=== PATIENT | male | born 1960 | race Hispanic/Latino ===

== ENCOUNTER 2017-08-22 11:54 | Outpatient (CLI) | payer BC ==
--- NOTE | 2017-08-22 15:25 | NM ---
HEPATOBILIARY SCAN: Date: 08/22/17 COMPARISON: None. HISTORY: Right upper quadrant abdominal pain. TECHNIQUE: A hepatobiliary scan was performed after administration of 4.7 mCi of technetium-99m mebrofenin. FINDINGS: Prompt uptake of the radiopharmaceutical is seen by the liver. No photopenic liver lesions are seen. Biliary activity is seen within 10 minutes. Gallbladder activity is seen within 10 minutes. Bowel a ctivity is seen within 15 minutes. The gallbladder emptied spontaneously during the examination. The gallbladder ejection fraction was estimated at 82%. IMPRESSION: Normal hepatobiliary scan. POS: [facility]
== END 2017-08-22 11:55 | disposition home or self-care (01) ==
LOC: NM 11:54
PROVIDERS: ATTEND Surgery
DX: R10.9 Unspecified abdominal pain (principal)
CPT/HCPCS: 78227; A9537

== ENCOUNTER 2018-01-01 20:30 | Outpatient (CLI) | payer OTHER, MEDICARE | END 2018-01-01 20:31 | disposition home or self-care (01) | LOC: SLEEPLAB 20:30 | PROVIDERS: ATTEND Internal Medicine Pulmonary Disease | DX: G47.33 Obstructive sleep apnea (adult) (pediatric) (principal); E66.9 Obesity, unspecified | CPT/HCPCS: 95811 ==

== ENCOUNTER 2018-03-16 08:04 | Emergency (ER) | payer OTHER, MEDICARE ==
[2018-03-16 09:10] LABS: Bilirubin Negative (Negative); Blood, Urine Negative (Negative); Clarity CLEAR (Clear); Glucose, Urine (Dipstick) Negative (Negative); Leukocyte Trace (Negative); Nitrite Negative (Negative); Protein, Urine (Dipstick) Negative (Neg-Trace); Specific Gravity, Urine 1.006 (1.002-1.036); Urobilinogen 0.2 mg/dL (0.2-1.0); pH, Urine 6.5 (5.0-9.0)
[2018-03-16 09:13] LABS: Bacteria/HPF None Seen HPF (None Seen); Hyaline Casts/LPF 0-3 HYALINE CAST LPF (0-3 Hyaline); RBC/HPF 0-3 HPF (0-3); Squamous Epithelial None Seen HPF (0-3); WBC/HPF None Seen HPF (0-3)
[2018-03-16 09:21] LABS: #Eosinphils 0.2 thou/uL (0.0-0.7); #Lymphocytes 2.4 thou/uL (1.20-3.40); #Monocytes 0.8 thou/uL (0.11-0.59); #Neutrophils 4.1 thou/uL (1.40-6.50); %Basophils 0.4 % (0.0-1.0); %Eosinophils 2.9 % (0.0-10.0); %Lymphocytes 31.7 % (21.0-51.0); %Monocytes 10.7 % (0.0-10.0); %Neutrophils 54.4 % (42.0-75.0); Hemoglobin 15.3 g/dL (14.0-18.0); Mean Corpuscular HGB CONC 35.1 g/dL (32.0-36.0); Mean Corpuscular Volume 88.4 fl (80.0-94.0); Mean Platelet Volume 6.6 fL (7.4-10.4); Platelet Count 275 thou/uL (130-400); RBC Distribution Width 11.8 % (11.5-14.5); Red Blood Cell (RBC) Count 4.92 mill/uL (4.70-6.10); White Blood Cell (WBC) Count 7.6 thou/uL (4.8-10.8)
[2018-03-16 09:31] LABS: Base Excess-Venous 1.1 mmol/L (0 (+/- 2.5)); Bicarbonate (HCO3v) 25.1 mmol/L (1.0-85.0); CO2 Tension (PvCO2) 37.3 mmHg (41.0-51.0); Calcium, Ionized 1.13 mmol/L (1.12-1.32); Hemoglobin - Calc 15.9 g/dL (12.0-18.0); O2 Tension (PvO2) 74.3 mmHg (35.0-45.0); Potassium 3.8 mmol/L (3.4-4.7); T. Carbon Dioxide 26.3 mmol/L (1.0-85.0); pH (Venous) 7.437 (7.35-7.45); vO2 Saturation-calc 95.3 % (94-98)
[2018-03-16 09:37] LABS: ALT (SGPT) 68 U/L (8-55); AST (SGOT) 34 U/L (5-34); Albumin 4.5 g/dL (3.5-5.0); Alkaline Phosphatase 65 U/L (40-150); Anion Gap 12 mmol/L (10-20); BUN (Urea Nitrogen) 9 mg/dL (8.4-25.7); Bilirubin, Total 0.5 mg/dL (0.2-1.2); CK (CPK) 345 U/L (30-200); Calc. Creatinine Clearance 0 mL/min (70-130); Calcium 9.7 mg/dL (7.8-10.44); Carbon Dioxide 26 mmol/L (22-29); Chloride 98 mmol/L (98-107); Estimated GFR-MDRD Greater than 90; Globulin 3.3 g/dL (2.4-3.5); Glucose 122 mg/dL (70-105); Magnesium 1.9 mg/dL (1.6-2.6); Potassium 3.9 mmol/L (3.5-5.1); Protein, Total 7.8 g/dL (6.0-8.3); Sodium 132 mmol/L (136-145)
[2018-03-16 09:46] LABS: CKMB 2.9 ng/mL (0-6.6); Troponin I Less than 0.010 ng/mL (< 0.028)
[2018-03-16] MEDS ORDERED: Aspirin 325 MG TAB ONE (09:56)
--- NOTE | 2018-03-16 11:02 | RAD ---
ONE VIEW CHEST: COMPARISON: 03/31/16. History Pain. FINDINGS: Normal cardiac silhouette. The lungs and pleural spaces are clear. No pneumothorax or osseous abnor malities. IMPRESSION: No acute cardiopulmonary process. POS: [facility]
== END 2018-03-16 10:06 | disposition home or self-care (01) ==
LOC: ERS 08:04
DX: E11.65 Type 2 diabetes mellitus with hyperglycemia (principal); E78.5 Hyperlipidemia, unspecified; I10 Essential (primary) hypertension; N40.0 Benign prostatic hyperplasia without lower urinary tract symptoms; Z79.899 Other long term (current) drug therapy; Z79.84 Long term (current) use of oral hypoglycemic drugs
CPT/HCPCS: 36416; 71045; 80053; 81003; 81015; 82010; 82330; 82553; 82803; 83735; 83930; 84484; 85025; 93005

== ENCOUNTER 2018-10-15 06:57 | Observation (INO) | payer OTHER, MEDICARE ==
[2018-10-15 07:28] LABS: #Basophils 0.1 thou/uL (0.0-0.2); #Eosinphils 0.3 thou/uL (0.0-0.7); #Lymphocytes 2.7 thou/uL (1.20-3.40); #Monocytes 0.8 thou/uL (0.11-0.59); %Eosinophils 3.5 % (0.0-10.0); %Lymphocytes 30.2 % (21.0-51.0); %Monocytes 9.1 % (0.0-10.0); %Neutrophils 56.2 % (42.0-75.0); Hemoglobin 15.1 g/dL (14.0-18.0); Mean Corpuscular HGB CONC 33.4 g/dL (32.0-36.0); Mean Corpuscular Hemoglobin 29.8 pg (27.0-31.0); Mean Corpuscular Volume 89.2 fL (78.0-98.0); Platelet Count 273 thou/uL (130-400); RBC Distribution Width 11.5 % (11.5-14.5); Red Blood Cell (RBC) Count 5.07 mill/uL (4.70-6.10); White Blood Cell (WBC) Count 8.9 thou/uL (4.8-10.8)
--- NOTE | 2018-10-15 07:38 | RAD ---
FRONTAL RADIOGRAPH CHEST: DATE: 10/15/2018. COMPARISON: 03/16/2018. HISTORY: Chest pain and pressure. FINDINGS: Postoperative change is noted at the level of the right humeral head and distal right clavicle, stabl e. Heart and mediastinal contours are stable. No pneumothorax, pleural fluid, focal consolidation, or alveolar edema. IMPRESSION: No acute findings. POS: [facility]
[2018-10-15 07:47] LABS: ALT (SGPT) 95 U/L (8-55); AST (SGOT) 41 U/L (5-34); Albumin 4.2 g/dL (3.5-5.0); Alkaline Phosphatase 57 U/L (40-150); Anion Gap 14 mmol/L (10-20); BUN (Urea Nitrogen) 11 mg/dL (8.4-25.7); Bilirubin, Total 0.6 mg/dL (0.2-1.2); CK (CPK) 264 U/L (30-200); Calc. Creatinine Clearance 0 mL/min (70-130); Calcium 9.4 mg/dL (7.8-10.44); Carbon Dioxide 25 mmol/L (22-29); Chloride 96 mmol/L (98-107); Estimated GFR-MDRD 78; Globulin 3.4 g/dL (2.4-3.5); Glucose 187 mg/dL (70-105); Potassium 3.8 mmol/L (3.5-5.1); Protein, Total 7.6 g/dL (6.0-8.3); Sodium 131 mmol/L (136-145)
[2018-10-15] MEDS ORDERED: Nitroglycerin 0.4 MG TAB (25 Tab Bottle) ONE (08:01)
[2018-10-15] MEDS ORDERED: Nitroglycerin 2% Ointment 1 INCH/1 GM Packet ONE (08:44)
[2018-10-15] MEDS ORDERED: Morphine 4 MG/ML VIAL ONE (08:44)
[2018-10-15] MEDS ORDERED: HumaLOG 300 UNITS/3 ML VIAL SC PRN (09:49)
[2018-10-15] MEDS ORDERED: Acetaminophen 325 MG TAB PO PRN (09:49)
[2018-10-15] MEDS ORDERED: Dextrose 50% Abboject 50 ML SYRINGE SLOW IVP PRN (09:49)
[2018-10-15] MEDS ORDERED: Dextrose 5% in Water 1,000 ML IV PRN (09:49)
[2018-10-15] MEDS ORDERED: Zolpidem Tartrate 5 MG TAB PO PRN (09:49)
[2018-10-15] MEDS ORDERED: Ondansetron ODT 4 MG TAB PO PRN (09:49)
[2018-10-15 09:51] VITALS: BMI 37.8
[2018-10-15 11:00] LABS: Troponin I Less than 0.010 ng/mL (< 0.028)
--- NOTE | 2018-10-15 11:11 | HP ---
PRIMARY CARE PROVIDER: Elizabeth Couch MD. HISTORY OF PRESENT ILLNESS: Referred to the [facility] [place] [facility] by [facility] for chest pain. The patient complains of anterior pressure chest pain radiating first to one shoulder and then the other started a week ago. It is always present. He has minimal shortness of breath. No sweats. No nausea. PAST MEDICAL HISTORY: Diabetes mellitus, type 2; hypertension; elevated cholesterol; fatty liver; benign prostatic hypertrophy; obstructive sleep apnea; and cardiac cath unremarkable 2 years ago. CURRENT MEDICATIONS: 1. Gabapentin 300 mg 3 times a day. 2. Metformin 500 mg 3 times a day. 3. Amlodipine 5 mg a day. 4. Oxybutynin 10 mg a day. 5. Zocor 40 mg a day. 6. Ambien 5 mg at bedtime. 7. Flomax 0.4 mg a day. 8. Losartan/hydrochlorothiazide 100/25 once a day. 9. Glipizide 2.5 mg once a day. 10. Melatonin 5 mg at bedtime. 11. Vitamin D3. ALLERGIES: LEVITRA, LISINOPRIL. PAST SURGICAL HISTORY: 1. Left knee surgery. 2. Right knee surgery for a staph infection. 3. Rotator cuff surgery on the right, which developed a staph infection. FAMILY HISTORY: Mother and father with diabetes and hypertension. Brother with testicular CA, considered cured. Uncle with prostatic CA. SOCIAL HISTORY: . at bedside. Full code status. is the surrogate decision maker. No tobacco. No alcohol. REVIEW OF SYSTEMS: GENERAL: He sometimes gets off balance, occasional lightheaded spells. He has vertigo with quick motions of his head. EYES: He sees floaters. He has chronic nystagmus. EAR, NOSE, AND THROAT: No ear pain or drainage. No nasal bleeding. No trouble swallowing. CARDIAC: No orthopnea or paroxysmal nocturnal dyspnea. RESPIRATORY: Very occasional wheeze. No cough. No dyspnea on exertion. GASTROINTESTINAL: No nausea, vomiting, abdominal pain, diarrhea, or constipation. GENITOURINARY: Some frequency of urination, nocturia. No hematuria. MUSCULOSKELETAL: No pain or swelling in his arms or legs. NEUROLOGICAL: No strokes, seizures, or focal weakness. PSYCHIATRIC: No anxiety or depression. SKIN: No bruising, bleeding, or rash. HEME/LYMPH: No tender or swollen lymph nodes in the axilla, inguinal, or cervical area. PHYSICAL EXAMINATION: GENERAL: Alert, oriented, cooperative gentleman. VITAL SIGNS: Blood pressure 131/85, temperature 97.5, pulse 73, respirations 20, and O2 saturation 97%. HEAD, EYES, EARS, NOSE, THROAT: Revealed pupils are equal, round, and reactive to light. Extraocular movements are intact. Sclerae are white. Tympanic membranes are clear. Nose is clear. Throat is clear. CHEST: Clear to auscultation and percussion. HEART: Regular rate and rhythm. First and second heart sounds are clear. There are no murmurs or gallops. ABDOMEN: Soft. Bowel sounds are normal. There is no hepatosplenomegaly. No mass. No rebound or bruits. EXTREMITIES: Reveal no cyanosis, clubbing, or edema. Pulses; carotid, radial, femoral, and dorsalis pedis pulses intact and symmetric. SKIN: Warm and dry without bruises or rash. HEME/LYMPH: No tender or swollen lymph nodes in axilla, inguinal, or cervical area. No petechial hemorrhages. NEUROLOGICAL: Cranial nerves 2 to 12 are intact. He does have chronic nystagmus. Deep tendon reflexes symmetric. Moves all extremities. DIAGNOSTIC STUDIES: EKG; regular sinus rhythm, left bundle-branch block. Chest x-ray; no cardiomegaly, CHF, or infiltrate, reviewed by me. LABORATORY DATA: Sodium 131, potassium 3.8, chloride 96, CO2 of 25, BUN 11, creatinine 0.98, blood sugar 187. AST 41, ALT 95, CK 264, troponin 0.012. CBC normal. ADMITTING DIAGNOSES: 1. Atypical chest pain, most likely musculoskeletal. 2. Diabetes mellitus, type 2. 3. Hypertension. 4. Elevated cholesterol. 5. History of fatty liver. 6. Benign prostatic hypertrophy. 7. Sleep apnea. PLAN: Serial enzymes x3. Aspirin, selected home medicines. Hold Metformin. Exercise Cardiolite stress test if troponins are normal. Monitor [facility]. Job ID: [id number]
[2018-10-15 14:00] LABS: Troponin I Less than 0.010 ng/mL (< 0.028)
[2018-10-15] MEDS ORDERED: Non-Formulary Item 1 EACH (Gabapentin [Gralise] 300 MG) PO SCH (15:00)
[2018-10-15] MEDS: Gabapentin 300 MG CAP PO SCH ×2 (16:27→20:58)
[2018-10-15] MEDS ORDERED: Atorvastatin Calcium 20 MG TAB PO SCH (21:00)
[2018-10-16] MEDS ORDERED: Tamsulosin HCl 0.4 MG CAP PO SCH (08:00)
[2018-10-16] MEDS ORDERED: Atorvastatin Calcium 20 MG TAB PO SCH (09:00)
[2018-10-16] MEDS ORDERED: Oxybutynin ER 5 MG TAB PO SCH (09:00)
[2018-10-16] MEDS ORDERED: Amlodipine 5 MG TAB PO SCH (09:00)
[2018-10-16] MEDS ORDERED: Aspirin 325 MG TAB PO SCH (09:00)
[2018-10-16] MEDS ORDERED: Losartan/Hydrochlorothiazide 100 mg/25 mg Tablet PO SCH (09:00)
[2018-10-16] MEDS: Gabapentin 300 MG CAP PO SCH (09:01)
[2018-10-16 12:10] VITALS: BP 172/83; TEMP 98.2
--- NOTE | 2018-10-16 13:04 | EKG ---
Test Reason : Blood Pressure : / mmHG Vent. Rate : 079 BPM Atrial Rate : 079 BPM P-R Int : 154 ms QRS Dur : 154 ms QT Int : 426 ms P-R-T Axes : 042 008 170 degrees QTc Int : 488 ms Normal sinus rhythm Left bundle branch block Abnormal ECG Confirmed by DEQUAN COE ([id number]), non linear editor CHARLIE LEYVA ([id number]) on 10/16/2018 1:04:04 PM Referred By: Confirmed By:DEQUAN COE
--- NOTE | 2018-10-16 13:36 | NM ---
RADIONUCLIDE STRESS AND REST MYOCARDIAL PERFUSION SCAN WITH CT ATTENUATION CORRECTION AND SPECT IMAGI NG WITH LEFT VENTRICULAR WALL MOTION EVALUATION AND EJECTION FRACTION: HISTORY: Chest pain. FINDINGS: Adenosine protocol. There is homogeneous uptake of radiotracer throughout the left ventricular myocardium. No focal perfu amparo defect or reversibility. QGS analysis of gated SPECT images shows no focal wall motion abnormalities. Ejection fraction calcul ated at 55%. IMPRESSION: 1. Normal myocardial perfusion scan. 2. Normal LVEF. POS: [facility]
--- NOTE | 2018-10-16 14:22 | DIS ---
DATE OF ADMISSION: 10/15/2018 DATE OF DISCHARGE: 10/16/2018 TRANSFER OF CARE DISPOSITION: Discharged home. PRIMARY CARE PROVIDER: Elizabeth Couch MD FINAL DIAGNOSES: Noncardiac chest pain, type 2 diabetes, essential hypertension, and dyslipidemia. DISCHARGE MEDICINES: Same as his home medicines. 1. Gabapentin 300 mg three times a day. 2. Metformin 500 mg three times a day. 3. Glipizide 2.5 mg a day. 4. Zocor 40 mg a day. 5. Losartan/hydrochlorothiazide 100/25 one a day. 6. Oxybutynin 10 mg a day. 7. Flomax 0.4 mg a day. 8. Amlodipine 5 mg a day. ALLERGIES: TO LISINOPRIL AND LEVITRA. DIET: Diabetic. PENDING AT TIME OF DISCHARGE: Nothing. CODE STATUS: Full. HOSPITAL COURSE: The patient was admitted to [facility] Hospitalist Service with atypical chest pain, more shoulder pain and discomfort. He had a normal cardiac cath essentially two years ago. EKG reveals sinus rhythm, left bundle branch block. Remainder of his studies; CBC, metabolic profile, cardiac enzymes were all normal except for some minor transaminase changes of 41 and 95 AST and ALT. Nuclear medicine cardiac stress test is normal. This has been discussed with the patient. He still has this shoulder discomfort. He has been advised to see Dr. Couch in followup for that. No consultations. No procedures. Job ID: [id number]
== END 2018-10-16 16:01 | disposition home or self-care (01) ==
LOC: ERS 06:57 → 2SW 08:17
PROVIDERS: ADMIT Internal Medicine; ATTEND Internal Medicine
DX: R07.89 Other chest pain (principal); E11.9 Type 2 diabetes mellitus without complications; I10 Essential (primary) hypertension; E78.00 Pure hypercholesterolemia, unspecified; N40.0 Benign prostatic hyperplasia without lower urinary tract symptoms; G47.33 Obstructive sleep apnea (adult) (pediatric); Z79.84 Long term (current) use of oral hypoglycemic drugs; Z79.899 Other long term (current) drug therapy; Z88.8 Allergy status to other drugs, medicaments and biological substances; Z98.890 Other specified postprocedural states
CPT/HCPCS: 36415; 36416; 71045; 78452; 80053; 82550; 84484; 85025; 93005; 93017; 96374; A9500; G0378; J0153; J2270

== ENCOUNTER 2018-11-13 12:04 | Outpatient (CLI) | payer OTHER, MEDICARE ==
--- NOTE | 2018-11-13 14:50 | ULT ---
CAROTID ULTRASOUND WITH FRANK SCALE AND DOPPLER DUPLEX COLOR FLOW IMAGING SPECTRAL ANALYSIS PERFORMED: CLINICAL INDICATION: Dizziness and giddiness. FINDINGS: There is no significant atherosclerotic calcification of the carotid arteries. PEAK SYSTOLIC VELOCITY (CM/S): Right CCA 73 Left CCA 95 Right ICA 61 Left ICA 62 There is antegrade flow within the visualized bilateral vertebral arteries. IMPRESSION: 1. No hemodynamically significant stenosis of the right internal carotid artery. 2. No hemodynamically significant stenosis of the left internal carotid artery. POS: [facility]
== END 2018-11-13 12:05 | disposition home or self-care (01) ==
LOC: BICULT 12:04
PROVIDERS: ATTEND Internal Medicine
DX: R42 Dizziness and giddiness (principal)
CPT/HCPCS: 93880

== ENCOUNTER 2019-03-27 07:57 | Outpatient (CLI) | payer OTHER, MEDICARE ==
--- NOTE | 2019-03-27 09:56 | RAD ---
PA AND LATERAL VIEWS CHEST: Date: 03/27/19 HISTORY: Hypertension. FINDINGS: Comparison made with exam of 10/15/18. The heart size is prominent, but stable. The lungs are expanded without lobar consolidation, pneumoth oraces, juventino pulmonary edema, or pleural effusions. Postop changes in the right humeral head and rig ht distal clavicle are again seen. There are degenerative changes in the spine. IMPRESSION: No radiographic evidence of acute cardiopulmonary process. POS: [facility]
== END 2019-03-27 07:58 | disposition home or self-care (01) ==
LOC: BICRAD 07:57
PROVIDERS: ATTEND Internal Medicine
DX: I10 Essential (primary) hypertension (principal)
CPT/HCPCS: 71046

== ENCOUNTER 2019-04-03 15:39 | Emergency (ER) | payer OTHER, MEDICARE ==
[2019-04-03 16:11] LABS: #Basophils 0.1 thou/uL (0.0-0.2); #Eosinphils 0.4 thou/uL (0.0-0.7); #Lymphocytes 2.9 thou/uL (1.20-3.40); #Monocytes 0.9 thou/uL (0.11-0.59); #Neutrophils 5.6 thou/uL (1.40-6.50); %Basophils 0.8 % (0.0-1.0); %Eosinophils 3.7 % (0.0-10.0); %Lymphocytes 29.5 % (21.0-51.0); %Monocytes 8.9 % (0.0-10.0); %Neutrophils 57.2 % (42.0-75.0); Hemoglobin 15.8 g/dL (14.0-18.0); Mean Corpuscular HGB CONC 34.5 g/dL (32.0-36.0); Mean Corpuscular Hemoglobin 30.4 pg (27.0-31.0); Mean Corpuscular Volume 88.1 fL (78.0-98.0); Mean Platelet Volume 6.7 fL (7.4-10.4); Platelet Count 289 thou/uL (130-400); RBC Distribution Width 11.5 % (11.5-14.5); White Blood Cell (WBC) Count 9.7 thou/uL (4.8-10.8)
[2019-04-03 16:33] LABS: ALT (SGPT) 124 U/L (8-55); AST (SGOT) 61 U/L (5-34); Albumin 4.6 g/dL (3.5-5.0); Alkaline Phosphatase 61 U/L (40-150); Anion Gap 13 mmol/L (10-20); BUN (Urea Nitrogen) 9 mg/dL (8.4-25.7); Bilirubin, Total 0.4 mg/dL (0.2-1.2); Calc. Creatinine Clearance 0 mL/min (70-130); Calcium 10.1 mg/dL (7.8-10.44); Carbon Dioxide 26 mmol/L (22-29); Chloride 96 mmol/L (98-107); Estimated GFR-MDRD Greater than 90; Globulin 3.2 g/dL (2.4-3.5); Glucose 125 mg/dL (70-105); Potassium 3.8 mmol/L (3.5-5.1); Protein, Total 7.8 g/dL (6.0-8.3); Sodium 131 mmol/L (136-145)
--- NOTE | 2019-04-03 17:06 | RAD ---
EXAM: Chest 2 views: HISTORY: Cough COMPARISON: 03/27/2019 FINDINGS: There is a normal-sized cardiomediastinal silhouette. There is no evidence of consolidation, mass, or pleural effusion. Degenerative changes are seen in the spine. IMPRESSION: No evidence of acute cardiopulmonary disease
== END 2019-04-03 18:20 | disposition home or self-care (01) ==
LOC: ERS 15:39
DX: R06.02 Shortness of breath (principal); G47.30 Sleep apnea, unspecified; E11.9 Type 2 diabetes mellitus without complications; E78.5 Hyperlipidemia, unspecified; I10 Essential (primary) hypertension; I25.2 Old myocardial infarction; N40.0 Benign prostatic hyperplasia without lower urinary tract symptoms; Z79.899 Other long term (current) drug therapy; Z79.84 Long term (current) use of oral hypoglycemic drugs
CPT/HCPCS: 36415; 71046; 80053; 84484; 85025; 93005; 94760; J7620

== ENCOUNTER 2019-04-09 13:13 | Outpatient (CLI) | payer OTHER, MEDICARE ==
--- NOTE | 2019-04-09 16:00 | RAD ---
TWO VIEWS OF THE CHEST: COMPARISON: 04/03/2019. HISTORY: Dyspnea. FINDINGS: Two views of the chest show normal sized cardiomediastinal silhouette. There is no evidence of consol idation, mass, or pleural effusion. The bones are unremarkable. IMPRESSION: No evidence of acute cardiopulmonary disease. POS: [facility]
== END 2019-04-09 13:14 | disposition home or self-care (01) ==
LOC: RAD 13:13
PROVIDERS: ATTEND Internal Medicine Pulmonary Disease
DX: R06.00 Dyspnea, unspecified (principal)
CPT/HCPCS: 71046

== ENCOUNTER 2019-08-29 20:49 | Emergency (ER) | payer OTHER, MEDICARE ==
[2019-08-29] MEDS ORDERED: Ketorolac Tromethamine 30 MG/ML VIAL ONE (21:22)
[2019-08-29 21:27] LABS: Bilirubin Negative (Negative); Blood, Urine Negative (Negative); Clarity Clear (Clear); Glucose, Urine (Dipstick) Normal (Negative); Leukocyte Negative Leu/uL (Negative); Nitrite Negative (Negative); Protein, Urine (Dipstick) Negative (Neg-Trace); Urobilinogen Normal mg/dL (Less than 2)
[2019-08-29 21:45] LABS: #Basophils 0.1 thou/uL (0.0-0.2); #Eosinphils 0.3 thou/uL (0.0-0.7); #Lymphocytes 2.8 thou/uL (1.20-3.40); #Neutrophils 6.5 thou/uL (1.40-6.50); %Basophils 0.7 % (0.0-1.0); %Eosinophils 3.2 % (0.0-10.0); %Lymphocytes 26.3 % (21.0-51.0); %Monocytes 9.5 % (0.0-10.0); %Neutrophils 60.4 % (42.0-75.0); Hemoglobin 14.6 g/dL (14.0-18.0); Mean Corpuscular HGB CONC 34.8 g/dL (32.0-36.0); Mean Corpuscular Hemoglobin 30.9 pg (27.0-31.0); Mean Corpuscular Volume 88.9 fL (78.0-98.0); Mean Platelet Volume 6.8 fL (7.4-10.4); Platelet Count 258 thou/uL (130-400); RBC Distribution Width 11.5 % (11.5-14.5); Red Blood Cell (RBC) Count 4.74 mill/uL (4.70-6.10); White Blood Cell (WBC) Count 10.8 thou/uL (4.8-10.8)
[2019-08-29 22:02] LABS: ALT (SGPT) 59 U/L (8-55); AST (SGOT) 27 U/L (5-34); Albumin 4.3 g/dL (3.5-5.0); Alkaline Phosphatase 57 U/L (40-110); Anion Gap 13 mmol/L (10-20); BUN (Urea Nitrogen) 7 mg/dL (8.4-25.7); Bilirubin, Total 0.4 mg/dL (0.2-1.2); Calc. Creatinine Clearance 0 mL/min (70-130); Calcium 9.3 mg/dL (7.8-10.44); Carbon Dioxide 25 mmol/L (22-29); Chloride 99 mmol/L (98-107); Estimated GFR-MDRD Greater than 90; Globulin 3.3 g/dL (2.4-3.5); Glucose 119 mg/dL (70-105); Potassium 3.8 mmol/L (3.5-5.1); Protein, Total 7.6 g/dL (6.0-8.3); Sodium 133 mmol/L (136-145)
--- NOTE | 2019-08-29 22:02 | CT ---
Exam: Abdomen CT without contrast Pelvic CT without contrast HISTORY: Right flank pain COMPARISON: 09/14/2016 FINDINGS: Abdomen CT: Lung bases:Clear Heart size: Normal heart size. Trace amount of pericardial fluid Aorta: Normal caliber. Atherosclerosis. No periaortic fat stranding Solid organs: Limited evaluation due to lack of IV contrast. Grossly no solid organ abnormality. Ther e is hepatomegaly. Lymph nodes: No gastrohepatic, retrocrural or periportal lymphadenopathy. There are few scattered non specific periaortic and aortocaval lymph nodes. Findings are unchanged. Gallbladder: Contracted. Mesentery: No mass, lymphadenopathy, free air or free fluid Kidneys: Bilaterally, no hydronephrosis, nephrolithiasis or perinephric fat stranding. Bilateral uret ers have a normal caliber. No hydroureter, periureteral fat stranding or ureterolithiasis. Alimentary canal: Limited evaluation due to the lack of oral contrast administration. No evidence of small bowel obstruction. Ileocecal junction is unremarkable. Appendix is normal in caliber. Diverticulosis. No evidence of diverticulitis. CT PELVIS: No mass, adenopathy, free air or free fluid. Mildly enlarged prostate gland. Urinary bladder: Unremarkable. Osseous structures: No lytic or blastic lesions IMPRESSION: No evidence of obstructive uropathy.
== END 2019-08-29 22:19 | disposition home or self-care (01) ==
LOC: ERS 20:49
DX: M54.5 Low back pain (principal); E78.5 Hyperlipidemia, unspecified; E78.00 Pure hypercholesterolemia, unspecified; Z87.891 Personal history of nicotine dependence; Z79.84 Long term (current) use of oral hypoglycemic drugs; Z79.899 Other long term (current) drug therapy
CPT/HCPCS: 74176; 80053; 81003; 85025; 96361; 96374; J1885

== ENCOUNTER 2020-04-29 07:39 | Outpatient (CLI) | payer OTHER, MEDICARE ==
--- NOTE | 2020-04-29 10:52 | ULT ---
HEPATIC ULTRASOUND WITH FRANK SCALE AND COLOR FLOW AND SPECTRAL DOPPLER IMAGING: HISTORY: Fatty liver. FINDINGS: The liver demonstrates increased echogenicity consistent with fatty infiltration with a focal area of decreased attenuation in the right lobe measuring 2.7 x 1.2 x 2.2 cm. No abnormal biliary ductal di latation is seen. The spleen measures 10 cm in length and is normal. Gallbladder is normal. The co mmon duct measures 3 mm in diameter. The visualized portions of the pancreas are normal. No free fl uid is seen. There is normal flow and spectral waveforms in the hepatic, portal, and splenic vasculature. IMPRESSION: Fatty liver with a focal hypoechoic lesion which could represent focal sparing. Evaluation with a co ntrast-enhanced CT scan is recommended. POS: [facility]
== END 2020-04-29 07:40 | disposition home or self-care (01) ==
LOC: BICULT 07:39
PROVIDERS: ATTEND Physician Assistant Medical
DX: K76.0 Fatty (change of) liver, not elsewhere classified (principal); K76.9 Liver disease, unspecified
CPT/HCPCS: 76705

== ENCOUNTER 2020-05-27 07:05 | Outpatient (CLI) | payer OTHER, MEDICARE ==
[2020-05-28 12:38] LABS: SARS-CoV-2 MS2 Positive; SARS-CoV-2 N Gene Negative; SARS-CoV-2 S Gene Negative; SARS-CoV-2 by NAA Not Detected (NotDetected); SARS-CoV-2 orf1ab Negative
== END 2020-05-27 07:06 | disposition home or self-care (01) ==
LOC: LABBT 07:05
PROVIDERS: ATTEND Student in an Organized Health Care Education/Training Program
DX: Z01.818 Encounter for other preprocedural examination (principal); Z11.59 Encounter for screening for other viral diseases; J34.2 Deviated nasal septum; J34.3 Hypertrophy of nasal turbinates; J34.89 Other specified disorders of nose and nasal sinuses; J31.0 Chronic rhinitis
CPT/HCPCS: 87635; 93005; 93010; U0003

== ENCOUNTER 2020-05-31 05:42 | Day surgery (SDC) | payer OTHER, MEDICARE ==
[2020-05-25 10:17] VITALS: BMI 38.4
[2020-05-31] MEDS ORDERED: AFRIN NASAL MIST 15 ML BOT ONE ×2 (06:23→06:36)
[2020-05-31] MEDS ORDERED: EPINEPHrine 1 MG/ML AMP ONE (06:35)
[2020-05-31] MEDS ORDERED: Lidocaine 1% w/Epinephrine 1:100K 20 ML VIAL ONE (06:35)
[2020-05-31] MEDS ORDERED: Bacitracin Zinc Ointment 30 gm TUBE ONE (06:36)
[2020-05-31] MEDS ORDERED: Midazolam HCl 2 mg/2 ml Vial ONE (06:51)
[2020-05-31] MEDS ORDERED: Fentanyl 250 MCG/5 ML VIAL ONE (06:51)
[2020-05-31 06:54] LABS: Anion Gap 12 mmol/L (10-20); BUN (Urea Nitrogen) 10 mg/dL (8.4-25.7); Calc. Creatinine Clearance 164 mL/min (70-130); Calcium 9.1 mg/dL (7.8-10.44); Carbon Dioxide 26 mmol/L (23-31); Chloride 99 mmol/L (98-107); Estimated GFR-MDRD Greater than 90; Glucose 169 mg/dL (80-115); Potassium 4.1 mmol/L (3.5-5.1); Sodium 133 mmol/L (136-145)
[2020-05-31] MEDS ORDERED: hydrALAZINE 20 MG/ML VIAL ONE ×2 (07:12→09:37)
[2020-05-31] MEDS ORDERED: Propofol 500 MG/50 ML VIAL ONE (07:24)
[2020-05-31] MEDS ORDERED: CEFAZOLIN 1 GM VIAL ONE (07:51)
[2020-05-31] MEDS ORDERED: Fentanyl 100 MCG/2 ML VIAL ONE (08:47)
[2020-05-31] MEDS ORDERED: Labetalol HCl 100 MG/20 ML VIAL ONE (10:03)
[2020-05-31] MEDS ORDERED: Rocuronium Bromide 10 MG/ML (10ML VIAL) ONE (10:48)
[2020-05-31] MEDS ORDERED: PROPOFOL 200 MG/20 ML VIAL ONE (10:48)
[2020-05-31] MEDS ORDERED: Glycopyrrolate 0.2 MG/ML 5 ML SYRINGE ONE (10:48)
[2020-05-31] MEDS ORDERED: Lidocaine 1% PF 5 ML VIAL ONE (10:48)
[2020-05-31] MEDS ORDERED: Dexamethasone 20 MG/5 ML VIAL ONE (10:48)
[2020-05-31] MEDS ORDERED: PHENYLEPHRINE-NS 100 MCG/ML 10 ML SYRINGE ONE (10:48)
[2020-05-31] MEDS ORDERED: Albuterol Sulfate HFA (OR ONLY) ONE (10:48)
[2020-05-31] MEDS ORDERED: Ondansetron PF 4 MG/2 ML Vial ONE (10:48)
[2020-05-31] MEDS ORDERED: Promethazine HCl 25 MG/ML VIAL ONE (11:41)
--- NOTE | 2020-06-01 12:00 | OP ---
DATE OF PROCEDURE: 05/31/2020 PREOPERATIVE DIAGNOSES: Septal deviation, turbinate hypertrophy and nasal valve collapse. POSTOPERATIVE DIAGNOSES: Septal deviation, turbinate hypertrophy and nasal valve collapse. PROCEDURES: Septoplasty, submucosal resection of inferior turbinates, and reconstruction of nasal valves. PERMIT: Procedures, benefits and risks including those of bleeding, infection, injury, anesthesia, allergic reaction, scarring necessitating revision or repair and alternatives were reviewed with the patient and family who expressed understanding of the information. A consent form was signed and witnessed and a paper copy of the consent form is available for review in the paper chart. INDICATIONS: Patient presenting to clinic with exam findings of septal deviation, turbinate hypertrophy and severe nasal valve collapse causing persistent nasal congestion and difficulty breathing, which was recalcitrant to medical management and is now brought to the operating room for operative treatment. ASSISTANTS: None. FINDINGS: Severe septal deviation with septal spurs, turbinate hypertrophy and nasal valve collapse. DESCRIPTION OF OPERATION: The patient was brought to the operating room and laid supine on the operating room table. General endotracheal anesthesia was administered and the septum was infiltrated with 1% lidocaine with 1:100,000 epinephrine and 6 Afrin-soaked cottonoids were placed in the bilateral nasal cavities, 3 on each side. The patient was then prepped and draped in a usual fashion. The nose was then evaluated endoscopically. The patient was seen to have a severe septal deviation and septal spurs. At this point, a left [place] incision was made followed by elevation of the mucoperichondrial flaps with a combination of a 15 blade, Leonor elevator and the Yancey. The cartilaginous aspect of the septum was incised anteriorly, taking care to leave at least a 1.5 cm margin from the anterior septal border. Incision was made along the cartilage and the contralateral mucoperichondrial flap was then elevated as well. At this point, the swivel knife was used to remove the deviated cartilaginous portion of the nasal septum and then evaluation of the bony septum was seen and showed deviation causing obstruction. Double-action scissors were used to cut both superiorly and inferiorly and Brendan's were used to remove the deviated aspects of the septum. The nose was then carefully analyzed bilaterally and it was clear that there was no obstruction from deviation and the remaining cartilaginous portions of the septum that were straight were replaced and a quilting mattress suture was then used to replace the mucoperichondrial flaps together with 4-0 chromic suture on a Bart needle and the Oscar incision was then closed in a running fashion with a 5-0 chromic suture. Next, attention was turned to the bilateral inferior turbinate reductions, which were then performed. Next, a stab incision was made along the anterior inferior head of each inferior turbinates followed by elevation with an elevator. An oscillating debrider was then placed in the pocket and used to remove the erectile tissue from inside the inferior turbinates on both sides thus reducing the size of the inferior turbinates bilaterally. After this was performed, both inferior turbinates were then lateralized and outfractured using a Owusu elevator. At this point, attention was turned to the nasal valve reconstruction. Bilateral nasal valve stenosis and collapse were observed with the endoscope. The left nasal ala was stabilized with a double-prong skin hook and an implant was inserted into the left internal nasal wall at the level of the nasal vibrissae. An implant was then inserted deep to the cartilaginous structures of the nasal ala and the left nasal sidewall and seated superiorly laterally to the nasal bone edge to anchor the left nasal sidewall and prevent collapse. The implant was seated well and palpation of the nasal wall showed good position of the implant. Attention was then turned to the right side and the same procedure was performed. The right nasal ala was stabilized with a double-prong skin hook and an implant was inserted into the right internal nasal wall at the level of the nasal vibrissae. The implant was inserted deep to the cartilaginous structures of the nasal ala and the right nasal sidewall and seated superior lateral to the nasal bone edge to anchor the nasal sidewall and prevent collapse. The implant was seated well and palpation of the nasal wall showed good position of the implant. At this point, the nasal cavity and nose were evaluated with the endoscope and it was clear that there was no deviation or obstruction. Bilateral Henderson splints were placed and held with a 2-0 silk suture on the anterior septum. The endoscopes were used to evaluate and showed that the Henderson splints were in good place. The patient tolerated the procedure well without complications and the patient was turned back to Anesthesia for emergence. Job ID: [id number]
== END 2020-05-31 12:20 | disposition home or self-care (01) ==
LOC: SDC 05:42
PROVIDERS: ATTEND Student in an Organized Health Care Education/Training Program
DX: J34.2 Deviated nasal septum (principal); J34.3 Hypertrophy of nasal turbinates; J34.89 Other specified disorders of nose and nasal sinuses; I10 Essential (primary) hypertension; E11.9 Type 2 diabetes mellitus without complications; E78.00 Pure hypercholesterolemia, unspecified; E78.5 Hyperlipidemia, unspecified; G47.33 Obstructive sleep apnea (adult) (pediatric); H55.00 Unspecified nystagmus; Z79.84 Long term (current) use of oral hypoglycemic drugs; Z79.899 Other long term (current) drug therapy; Z88.8 Allergy status to other drugs, medicaments and biological substances
CPT/HCPCS: 80048; J0171; J0360; J0690; J1100; J2250; J2405; J2550; J2704; J3010

== ENCOUNTER 2020-08-01 07:28 | Outpatient (CLI) | payer OTHER, MEDICARE ==
[2020-08-01 11:21] LABS: Anion Gap 12 mmol/L (10-20); BUN (Urea Nitrogen) 12 mg/dL (8.4-25.7); Calc. Creatinine Clearance 0 mL/min (70-130); Calcium 9.5 mg/dL (7.8-10.44); Carbon Dioxide 26 mmol/L (23-31); Chloride 94 mmol/L (98-107); Estimated GFR-MDRD 86; Glucose 202 mg/dL (80-115); Potassium 4.1 mmol/L (3.5-5.1); Sodium 128 mmol/L (136-145)
[2020-08-01 11:24] LABS: Hemoglobin 14.2 g/dL (14.0-18.0); Mean Corpuscular HGB CONC 33.9 g/dL (32.0-36.0); Mean Corpuscular Hemoglobin 30.7 pg (27.0-31.0); Mean Corpuscular Volume 90.4 fL (78.0-98.0); Mean Platelet Volume 7.6 fL (7.4-10.4); Platelet Count 263 thou/uL (130-400); RBC Distribution Width 11.5 % (11.5-14.5); Red Blood Cell (RBC) Count 4.63 mill/uL (4.70-6.10); White Blood Cell (WBC) Count 7.1 thou/uL (4.8-10.8)
[2020-08-01 11:29] LABS: Prothrombin Time 13.1 sec (12.0-14.7)
[2020-08-01 11:30] LABS: PTT 34.5 sec (22.9-36.1)
[2020-08-01 11:32] LABS: Bacteria/HPF None Seen HPF (None Seen); Bilirubin Negative (Negative); Blood, Urine 1+ (Negative); Clarity Clear (Clear); Glucose, Urine (Dipstick) 50 mg/dL (Negative); Ketone, Urine Negative (Negative); Leukocyte Negative Leu/uL (Negative); Nitrite Negative (Negative); Protein, Urine (Dipstick) Negative (Neg-Trace); RBC/HPF 0-3 HPF (0-3); Specific Gravity, Urine 1.014 (1.002-1.036); Squamous Epithelial None Seen HPF (0-3); Urobilinogen Normal mg/dL (Less than 2); WBC/HPF 0-3 HPF (0-3); pH, Urine 6.5 (5.0-9.0)
[2020-08-01 17:58] LABS: SARS-CoV-2 MS2 Positive; SARS-CoV-2 N Gene Negative; SARS-CoV-2 S Gene Negative; SARS-CoV-2 by NAA Not Detected (NotDetected); SARS-CoV-2 orf1ab Negative
--- NOTE | 2020-08-02 16:11 | EKG ---
Test Reason : PREOP Blood Pressure : / mmHG Vent. Rate : 076 BPM Atrial Rate : 076 BPM P-R Int : 170 ms QRS Dur : 154 ms QT Int : 446 ms P-R-T Axes : 043 032 035 degrees QTc Int : 501 ms Normal sinus rhythm Left bundle branch block Abnormal ECG Confirmed by LAURIE MAZARIEGOS ([id number]) on 08/02/2020 4:11:22 PM Referred By: KHALIF Confirmed By:LAURIE MAZARIEGOS
== END 2020-08-01 07:29 | disposition home or self-care (01) ==
LOC: LABBT 07:28
PROVIDERS: ATTEND Urology
DX: Z01.818 Encounter for other preprocedural examination (principal); Z20.828 Contact with and (suspected) exposure to other viral communicable diseases; N40.1 Benign prostatic hyperplasia with lower urinary tract symptoms; R97.20 Elevated prostate specific antigen [PSA]; N32.81 Overactive bladder
CPT/HCPCS: 80048; 81001; 85027; 85610; 85730; 87077; 87086; 87186; 87635; 93005; 93010; U0003

== ENCOUNTER 2020-09-11 09:01 | Observation (INO) | payer OTHER, MEDICARE ==
[2020-09-11 09:37] LABS: #Basophils 0.1 thou/uL (0.0-0.2); #Eosinphils 0.4 thou/uL (0.0-0.7); #Monocytes 0.8 thou/uL (0.11-0.59); #Neutrophils 5.5 thou/uL (1.40-6.50); %Basophils 1.1 % (0.0-1.0); %Eosinophils 4.7 % (0.0-10.0); %Lymphocytes 22.8 % (21.0-51.0); %Monocytes 9.4 % (0.0-10.0); Mean Corpuscular HGB CONC 35.3 g/dL (32.0-36.0); Mean Corpuscular Volume 87.8 fL (78.0-98.0); Mean Platelet Volume 7.1 fL (7.4-10.4); Platelet Count 293 thou/uL (130-400); RBC Distribution Width 11.6 % (11.5-14.5); Red Blood Cell (RBC) Count 4.86 mill/uL (4.70-6.10); White Blood Cell (WBC) Count 8.9 thou/uL (4.8-10.8)
[2020-09-11 09:54] LABS: ALT (SGPT) 45 U/L (8-55); AST (SGOT) 21 U/L (5-34); Albumin 4.4 g/dL (3.4-4.8); Alkaline Phosphatase 61 U/L (40-110); Anion Gap 14 mmol/L (10-20); BUN (Urea Nitrogen) 12 mg/dL (8.4-25.7); Bilirubin, Total 0.3 mg/dL (0.2-1.2); Calc. Creatinine Clearance 0 mL/min (70-130); Calcium 9.6 mg/dL (7.8-10.44); Carbon Dioxide 24 mmol/L (23-31); Chloride 96 mmol/L (98-107); Estimated GFR-MDRD 90; Globulin 3.7 g/dL (2.4-3.5); Glucose 145 mg/dL (80-115); Potassium 3.9 mmol/L (3.5-5.1); Protein, Total 8.1 g/dL (5.8-8.1); Sodium 130 mmol/L (136-145)
--- NOTE | 2020-09-11 10:19 | RAD ---
RADIOGRAPH CHEST 1 VIEW: DATE: 09/11/2020 HISTORY: 60-year-old male with chest pain FINDINGS: There are no airspace densities, pulmonary edema, pneumothorax, or cardiomegaly. The lateral costophr enic angles are sharp. IMPRESSION: No acute cardiopulmonary findings.
[2020-09-11] MEDS ORDERED: Aspirin Chewable 81 MG TAB ONE ×2 (11:52)
[2020-09-11] MEDS ORDERED: Nitroglycerin 2% Ointment 1 INCH/1 GM Packet ONE (11:52)
[2020-09-11] MEDS ORDERED: Senokot S 8.6-50 MG TAB PO PRN (12:26)
[2020-09-11] MEDS ORDERED: HYDROcodone/Acetaminophen 5/325 mg Tablet PO PRN ×2 (12:26)
[2020-09-11] MEDS ORDERED: Acetaminophen 325 MG TAB PO PRN (12:26)
[2020-09-11] MEDS ORDERED: hydrALAZINE 20 MG/ML VIAL SLOW IVP PRN (12:29)
[2020-09-11] MEDS ORDERED: cloNIDine 0.1 MG TAB PO PRN (12:29)
[2020-09-11] MEDS ORDERED: Nitroglycerin 0.4 MG TAB (25 Tab Bottle) SL PRN (12:29)
[2020-09-11 12:45] LABS: Troponin I 0.017 ng/mL (< 0.028)
[2020-09-11] MEDS ORDERED: Dextrose 5% in Water 1,000 ML IV PRN (13:09)
[2020-09-11] MEDS ORDERED: Dextrose 50% Abboject 50 ML SYRINGE SLOW IVP PRN (13:09)
[2020-09-11] MEDS ORDERED: HumaLOG 300 UNITS/3 ML VIAL SC PRN ×2 (13:09)
[2020-09-11] MEDS ORDERED: Melatonin 3 MG TAB PO PRN (13:10)
--- NOTE | 2020-09-11 14:20 | HP ---
PRIMARY CARE PHYSICIAN: Dr. Couch. CHIEF COMPLAINT: Chest pain. HISTORY OF PRESENT ILLNESS: Mr. Reyez is a very pleasant 60-year-old man who reported to the emergency room this morning after experiencing some chest pain which radiated to his back, lasted several minutes and was substernal. It made him feel very short of breath and nauseated. Denied any diaphoresis. Denied any abdominal pain. No vomiting. No diarrhea. He reports that he was undergoing an evaluation for surgery within the last month. EKG was done which was abnormal, so he was sent to Cardiology for a workup. He saw Dr. Stauffer. They noticed he had a new left bundle branch block. He underwent a stress test and he was scheduled for cardiac cath this . At no point prior to today did he have any chest pain that prompted this preoperative screening. He was evaluated in the emergency room. First troponin was negative. There were no EKG changes. BNP was 13.4, sodium 130, chloride 96, glucose 145. The rest of his lab values were unremarkable. PAST MEDICAL HISTORY: Pertinent for hypertension, hyperlipidemia, diabetes type 2. FAMILY HISTORY: Diabetes. He is a former tobacco smoker. He will be admitted to the telemetry unit for further management. REVIEW OF SYSTEMS: The patient denies chills, fever. Reports chest pain substernal, which radiates to his back. He denied any radiation to his jaw or left arm. He reports some shortness of breath. Reports some nausea. Denies any diaphoresis. All systems are reviewed and are negative unless mentioned in the HPI. PAST MEDICAL HISTORY: MRSA, he has had an infection in right shoulder and knee. He has some sleep apnea, wears a CPAP at night, diabetes type 2, hypertension, hyperlipidemia, enlarged prostate, enlarged liver. SURGICAL HISTORY: He had a PICC line in the left biceps. Surgical history to his right knee, right shoulder, left hip. Hernia surgery in 2016. PSYCHIATRIC HISTORY: None. SOCIAL HISTORY: Former tobacco smoker more than 25 years ago. Denies any drug use. Denies any alcohol use. Lives at home with his family. ALLERGIES: LEVITRA, LISINOPRIL. CURRENT MEDICATIONS: 1. Glipizide 10 mg p.o. b.i.d. 2. Oxybutynin 10 mg p.o. once a day. 3. Gabapentin 300 mg 3 times a day. 4. Amlodipine 10 mg p.o. once a day. 5. Metformin 500 mg p.o. t.i.d. 6. Klonopin 0.1 t.i.d. 7. Januvia 100 mg p.o. once a day. 8. Melatonin 10 mg p.o. once a day. 9. Valsartan-hydrochlorothiazide 160/12.5 two tabs once a day. 10. Vitamin D 500 mcg once a day. 11. Vitamin E 100 mg p.o. once a day. PHYSICAL EXAMINATION: VITAL SIGNS: Blood pressure is 130/93, pulse is 66, respiratory rate is 16, temperature is 97.7, pO2 sats are 97% on room air. CONSTITUTIONAL: He is alert and oriented x3. HEENT: Head is atraumatic and normocephalic. Eyes, pupils are equally round and reactive to light. Conjunctiva is normal. ENT, mouth exam is normal. Mucous membranes are moist. NECK: Normal range of motion. Trachea is midline. RESPIRATORY/CHEST: Breath sounds are clear. Chest expansion is equal. CARDIOVASCULAR: Regular rate and rhythm. Heart sounds are normal. ABDOMEN: Nontender, bowel sounds are heard. EXTREMITIES: Upper extremity normal range of motion. Motor strength is normal. Radial pulses are normal. Lower extremity, normal range of motion. Motor strength is normal. SKIN: Warm, dry, normal in color. ASSESSMENT AND PLAN: 1. Chest pain. We will trend troponins in light of the fact he has had a recent stress test with Dr. Stauffer. We will consult him to evaluate whether he wants to do a cardiac cath sooner than , whether he is stable to be discharged to have that done as an outpatient. We will restart his medications for hypertension, hyperlipidemia, and nitroglycerin as needed for chest pain. 2. History of diabetes. We will add Accu-Chek a.c. and at bedtime, sliding scale. We will restart his metformin once Cardiology sees the patient and agrees to plan. 3. History of hypertension. We will restart his home medications. 4. DVT and gastrointestinal prophylaxis started. 5. Hospital course dependent on clinical findings. 6. Plan discussed with Dr. Pemberton, who agrees. Job ID: [id number]
[2020-09-11 15:59] LABS: Troponin I 0.019 ng/mL (< 0.028)
[2020-09-11] MEDS ORDERED: HYDROcodone/Acetaminophen 5/325 mg Tablet ONE (16:58)
[2020-09-11] MEDS: Famotidine 20 MG TAB PO SCH (21:32)
[2020-09-12] LABS: SARS-CoV-2 MS2 Positive; SARS-CoV-2 N Gene Negative; SARS-CoV-2 S Gene Negative; SARS-CoV-2 by NAA Not Detected (NotDetected); SARS-CoV-2 orf1ab Negative
[2020-09-12] MEDS ORDERED: Ondansetron ODT 4 MG TAB PO PRN (03:24)
[2020-09-12] MEDS ORDERED: Ondansetron PF 4 MG/2 ML Vial IVP PRN (03:24)
[2020-09-12 04:13] VITALS: BMI 38.3
[2020-09-12 05:13] LABS: #Basophils 0.1 thou/uL (0.0-0.2); #Eosinphils 0.5 thou/uL (0.0-0.7); #Lymphocytes 2.7 thou/uL (1.20-3.40); #Neutrophils 5.3 thou/uL (1.40-6.50); %Basophils 0.7 % (0.0-1.0); %Eosinophils 4.9 % (0.0-10.0); %Lymphocytes 27.9 % (21.0-51.0); %Monocytes 10.2 % (0.0-10.0); %Neutrophils 56.2 % (42.0-75.0); Hemoglobin 14.8 g/dL (14.0-18.0); Mean Corpuscular HGB CONC 35.2 g/dL (32.0-36.0); Mean Corpuscular Hemoglobin 31.3 pg (27.0-31.0); Mean Corpuscular Volume 88.9 fL (78.0-98.0); Mean Platelet Volume 7.2 fL (7.4-10.4); Platelet Count 278 thou/uL (130-400); RBC Distribution Width 11.8 % (11.5-14.5); Red Blood Cell (RBC) Count 4.72 mill/uL (4.70-6.10); White Blood Cell (WBC) Count 9.5 thou/uL (4.8-10.8)
[2020-09-12 05:34] LABS: ALT (SGPT) 47 U/L (8-55); AST (SGOT) 20 U/L (5-34); Albumin 4.1 g/dL (3.4-4.8); Alkaline Phosphatase 51 U/L (40-110); Anion Gap 12 mmol/L (10-20); BUN (Urea Nitrogen) 10 mg/dL (8.4-25.7); Bilirubin, Total 0.4 mg/dL (0.2-1.2); Calc. Creatinine Clearance 135 mL/min (70-130); Calcium 9.3 mg/dL (7.8-10.44); Carbon Dioxide 30 mmol/L (23-31); Chloride 96 mmol/L (98-107); Estimated GFR-MDRD 83; Globulin 3.4 g/dL (2.4-3.5); Glucose 118 mg/dL (80-115); Potassium 4.6 mmol/L (3.5-5.1); Protein, Total 7.5 g/dL (5.8-8.1); Sodium 133 mmol/L (136-145)
[2020-09-12] MEDS ORDERED: Enoxaparin Sodium 40 MG/0.4 ML SYRINGE SC SCH (09:00)
[2020-09-12] MEDS ORDERED: Aspirin 325 mg Enteric Coated Tablet PO SCH (09:00)
[2020-09-12] MEDS ORDERED: Amlodipine 5 MG TAB PO SCH (09:00)
[2020-09-12] MEDS: Famotidine 20 MG TAB PO SCH (09:41)
--- NOTE | 2020-09-12 10:58 | PDOC.HOSPP ---
- Subjective Encounter Date: 09/12/20 Encounter Time: 10:56 Subjective: Patient seen and examined. No new complaints. No overnight events. Patient denies any chest pain, heart palpitations, lightheadedness or swelling lower extremities. Denies any shortness of breath or wheezing. Denies cough. Has no other complaints at this time. - Objective Vital Signs & Weight: Vital Signs (12 hours) Temp Pulse Resp BP Pulse Ox 09/12/20 09:41 81 09/12/20 07:40 98.5 F 81 19 133/88 97 09/12/20 03:43 97.3 F L 62 15 160/79 H 99 09/11/20 23:17 63 156/89 H Weight Weight 251 lb 4 oz I&O: 09/11/20 09/12/20 09/13/20 06:59 06:59 06:59 Intake Total 240 Balance 240 Result Diagrams: 09/12/20 04:23 09/12/20 04:23 Additional Labs: Accuchecks 09/12/20 09/11/20 05:38 20:06 POC Glucose 121 H 170 H Hospitalist ROS - Review of Systems Constitutional: denies: fever, chills Respiratory: denies: cough, dry, shortness of breath Cardiovascular: denies: chest pain, palpitations Gastrointestinal: denies: nausea, vomiting, abdominal pain, diarrhea Genitourinary: denies: dysuria, hematuria Neurological: denies: weakness, numbness, change in speech All other systems reviewed; all pertinent +/- noted in HPI/Subj - Medication Medications: Active Medications Generic Name Dose Route Start Last Admin Trade Name Antwanq PRN Reason Stop Dose Admin Acetaminophen 650 mg 09/11/20 12:26 09/12/20 03:44 Acetaminophen 325 Mg Tab PO 650 mg Q4H PRN Administration Headache/Fever/Mild Pain (1-3) Hydrocodone Bitart/Acetaminophen 1 tab 09/11/20 12:26 09/11/20 17:00 Hydrocodone/Acetaminophen 5/325 Mg Tablet PO 1 tab Q4H PRN Administration Moderate Pain (4-6) Hydrocodone Bitart/Acetaminophen 2 tab 09/11/20 12:26 09/11/20 21:33 Hydrocodone/Acetaminophen 5/325 Mg Tablet PO 2 tab Q4H PRN Administration Severe Pain (7-10) Amlodipine Besylate 10 mg 09/12/20 09:00 09/12/20 09:41 Amlodipine 5 Mg Tab PO 10 mg QAM NIKKO Administration Aspirin 325 mg 09/12/20 09:00 09/12/20 09:41 Aspirin 325 Mg Enteric Coated Tablet PO 325 mg DAILY NIKKO Administration Enoxaparin Sodium 40 mg 09/12/20 09:00 09/12/20 09:41 Enoxaparin Sodium 40 Mg/0.4 Ml Syringe SC Not Given 0900 [facility] Famotidine 20 mg 09/11/20 21:00 09/12/20 09:41 Famotidine 20 Mg Tab PO 20 mg BID NIKKO Administration Melatonin 6 mg 09/11/20 13:10 09/11/20 21:32 Melatonin 3 Mg Tab PO 6 mg HSPRN PRN Administration Insomnia Ondansetron HCl 4 mg 09/12/20 03:24 09/12/20 03:44 Ondansetron Odt 4 Mg Tab PO 4 mg Q6H PRN Administration Nausea/Vomiting - Exam General Appearance: NAD, awake alert. negative: ill appearing Eye: anicteric sclera ENT: normocephalic atraumatic Neck: supple, symmetric, no JVD Heart: RRR, no murmur, no gallops, no rubs, normal peripheral pulses Respiratory: CTAB, no wheezes, no rales, no ronchi, normal chest expansion, no tachypnea Gastrointestinal: soft, non-tender, non-distended, normal bowel sounds, no bruit, no guarding, no rigidity Extremities: no cyanosis, no edema Skin: no rashes Neurological: cranial nerve grossly intact Musculoskeletal: normal tone, normal strength Psychiatric: normal affect, normal behavior, A&O x 3 Hosp A/P (1) Chest pain Code(s): R07.9 - CHEST PAIN, UNSPECIFIED Status: Acute (2) HTN (hypertension) Code(s): I10 - ESSENTIAL (PRIMARY) HYPERTENSION Status: Chronic (3) Hyperlipidemia Code(s): E78.5 - HYPERLIPIDEMIA, UNSPECIFIED Status: Chronic (4) Diabetes mellitus, type II, insulin dependent Code(s): E11.9 - TYPE 2 DIABETES MELLITUS WITHOUT COMPLICATIONS; Z79.4 - BOW MAKER [employer] (CURRENT) USE OF INSULIN Status: Chronic (5) Obstructive sleep apnea Code(s): G47.33 - OBSTRUCTIVE SLEEP APNEA (ADULT) (PEDIATRIC) Status: Chronic - Plan #Chest pain Troponins flat. Continue n.p.o. status. Awaiting cardiology consult. Continue aspirin and statin. #HTN Continue home dose amlodipine. Clonidine as needed. #Hyperlipidemia Continue home dose statin. #DM2 Hold oral antihyperglycemics Mild ISS. ACH S Accu-Cheks. #Obstructive sleep apnea Patient has home CPAP at bedside. Lovenox for DVT prophylaxis. Pepcid for GI prophylaxis. Full code. Discussed case with Dr. Pemberton.
[2020-09-12] MEDS ORDERED: cloNIDine 0.1 MG TAB PO SCH (15:00)
[2020-09-12] MEDS ORDERED: CLONIDINE HCL 0.1 MG PO SCH (15:00)
[2020-09-12] MEDS ORDERED: Gabapentin 300 MG CAP PO SCH (15:00)
[2020-09-12 15:22] VITALS: TEMP 97.6
[2020-09-12 16:03] VITALS: BP 173/88
--- NOTE | 2020-09-12 17:02 | CON ---
DATE OF CONSULTATION: 09/12/2020 INDICATION FOR CONSULTATION: A 60-year-old gentleman with chest pain. HISTORY OF PRESENT ILLNESS: This very pleasant 60-year-old gentleman, who is overweight, has had a history of left bundle branch block since 2016. He underwent cardiac catheterization [place] [address] Hilario and was found to have normal coronary arteries except for 20% proximal stenosis in an intermediate branch or ramus. His ejection fraction relatively has been normal. He stays at home and takes care of his two daughters, who have retinitis pigmentosus and have a decreased hearing and visual loss. He has been seen by Dr. Stauffer recently, he was still complaining of some intermittent chest pain, underwent stress testing, was found to have what appeared to be a septal scar with radha-infarct ischemia, but no other ischemia was noted and ejection fraction I believe was within normal limits. At this time, he started having some chest discomfort yesterday, which he describes as being tightness at times. Other times he describes as being a pressure, which radiated up to the shoulder area. He has had problems with his shoulder and back in the past. He has had rotator cuff repair. He said the pain became worse if he took a deep breath or he was coughing. He noted some more tightness and he also had some neck pain the night before he was seen in the emergency room, was given nitroglycerin and nitroglycerin paste was applied and he said eventually the pain just gradually resolved. He said he still feels some discomfort if he coughs and then today he had some episodes of some sharp pain, which did not appear to be cardiac in nature. His enzymes are negative for myocardial infarction. PAST MEDICAL HISTORY: Significant for a mild coronary disease involving 20% stenosis in the ramus branch. Otherwise, no coronary disease was noted. He has had right rotator cuff repair. He has had left knee surgery. He has had staph infections. He has had right shoulder surgery. He has had urinary tract infections in the past. He has hypertension, diabetes, hyperlipidemia, sleep apnea. He wears a CPAP mask. He has a left bundle branch block, which is at least present since 2016, He has also had left hip surgery. FAMILY HISTORY: His mother is . Father is , who has had emphysema and prostate cancer. SOCIAL HISTORY: He smoked in the past, has smoked for more than 10 years. He has no significant alcohol use. ALLERGIES: HE IS ALLERGIC TO LEVITRA. MEDICATIONS: Prior to admission included; 1. Vitamin D3. 2. Vitamin E. 3. Gabapentin. 4. Metformin. 5. Clonidine. 6. Amlodipine. 7. Losartan. 8. Oxybutynin. 9. Glipizide. 10. Crestor. 11. Januvia. REVIEW OF SYSTEMS: He wears glasses. Has false teeth. He has sleep apnea. Complains of occasional dizziness, but no syncope and has a chest pain as noted, but otherwise review of systems are normal or unremarkable. PHYSICAL EXAMINATION: GENERAL: Reveals a well-developed gentleman. He is overweight. VITAL SIGNS: His weight is 251 pounds. His blood pressure is 142/82, heart rate is 77 and regular with a left bundle branch block. Respiratory rate 14, temperature is afebrile, and O2 saturation is 99%. HEENT: Shows head to be normocephalic and atraumatic. Carotid pulses are present. There were no bruits. CHEST: Clear to auscultation without rales, rhonchi, or wheezing. CARDIOVASCULAR: Revealed a regular rate and rhythm at this time. There is no significant murmurs, heaves, thrills, bruits, or rubs. ABDOMEN: Shows obesity. Positive bowel sounds. No organomegaly or masses noted. Femoral pulses are present. EXTREMITIES: No clubbing, cyanosis, or edema. Pedal pulses are present. NEUROLOGIC: The patient appears to be fully intact. There are no gross focal motor deficits. SKIN: Warm and dry. PSYCHOSOCIAL: Appears to be also normal with no significant abnormalities were noted. LABORATORY DATA: Shows cardiac enzymes to be normal. No evidence of any elevation of cardiac enzymes. WBC is 9.5, hemoglobin 14.8, and platelet count 278,000. Sodium was 131, potassium was 4.6, BUN was 10, creatinine 0.93, and glucose was 118. Highest on admission since admission was 170. EKG shows a sinus rhythm with a left bundle branch block. IMPRESSION AND PLAN: 1. Elderly gentleman who had cardiac catheterization. He is being held with chest pain, who has a left bundle branch block. He underwent cardiac catheterization in 2016, was found to have normal coronary arteries except for 20% proximal stenosis in the ramus branch. He had normal left ventricular function, ejection fraction 55% to 60%, who presents again with chest pain at this time. He has had some occasional episodes of chest discomfort, but no significant abnormalities. At this time, he presents again with chest discomfort. Enzymes are negative. The EKG is unchanged. He still continues to have a left bundle branch block. Since the patient did have a recent stress test which showed a possible septal scar with rdaha-infarct ischemia. Given his presentation and a normal catheterization with normal enzymes, normal catheterization four years ago and normal cardiac enzymes at this time and the patient is at low risk and could be treated medically at this time with the patient could be discharged to home and can follow up with Dr. Stauffer as an outpatient. 2. Left bundle branch block, which is not new. This is continued in this patient. 3. Hypertension. Blood pressure is slightly elevated. We can also be dealt with and as an outpatient basis. 4. Obstructive sleep apnea. He will continue with the continuous positive airway pressure mask. Further care will be by Dr. Stauffer when he sees the patient again in the office, but this time we will continue medical management on this otherwise very pleasant gentleman. ADDENDUM: Please note also discussion with the patient was undertaken and he was given the option to either undergo cardiac catheterization. At this time, will be discharged to home. We had a long discussion and he has opted to go home and can follow with Dr. Stauffer as an outpatient to make a final decision about cardiac catheterization, but at this time he prefers to go home rather than have cardiac catheterization at this time, and I believe the patient is stable for discharge. Job ID: [id number]
--- NOTE | 2020-09-12 17:05 | DIS ---
DATE OF ADMISSION: 09/11/2020 DATE OF DISCHARGE: 09/12/2020 PRIMARY CARE PHYSICIAN: Dr. Couch. DISCHARGE DIAGNOSES: 1. Chest pain. 2. Hypertension. 3. Hyperlipidemia. 4. DM type 2. 5. Obstructive sleep apnea. 6. COVID-19 test negative. CONDITION: Stable. Examined the patient on the day of discharge, vital signs are stable. Denies any chest pain, heart palpitations, or shortness of breath. S1, S2 auscultated. Lungs clear bilaterally. CONSULTS: Cardiology, Dr. Yolanda Mims. HOSPITAL COURSE: The patient is a 60-year-old male with a past medical history significant for hypertension, hyperlipidemia, and diabetes type 2, who presented for chest pain. The patient recently had an abnormal EKG that showed a new left bundle branch block. The patient underwent a cardiac stress test and was scheduled for cardiac catheterization with Dr. Stauffer this . However, the patient developed chest pain the evening prior to admission from the ER. The patient's EKG was unremarkable. Troponins were negative, 0.017, 0.019. The patient was given aspirin and statin. His chest pain had resolved throughout his stay. Cardiology was consulted. Cardiology cleared the patient from a cardiac standpoint. The patient will be discharged home on his home medications and will keep his followup cardiac catheterization scheduled on with Dr. Stauffer. DISCHARGE MEDICATIONS: 1. Crestor 10 mg p.o. at bedtime. 2. Oxybutynin 10 mg p.o. at bedtime. 3. Gabapentin 300 mg p.o. t.i.d. 4. Clonidine 0.1 mg one tablet p.o. t.i.d. 5. Amlodipine 10 mg p.o. b.i.d. 6. Januvia 100 mg p.o. daily. 7. Metformin 500 mg p.o. t.i.d. 8. Glipizide 10 mg p.o. b.i.d. 9. Vitamin E 180 mg p.o. daily. 10. Vitamin D3 50 mcg p.o. daily. FOLLOWUP: Follow up with PCP in less than one week. Keep scheduled cardiac catheterization with Dr. Stauffer on . DIET: Heart healthy, consistent carb. ACTIVITY: As tolerated. DISPOSITION: Home. Time spent with this discharge approximately 20 minutes. Job ID: [id number] [facility]
[2020-09-12] MEDS ORDERED: Oxybutynin 5 MG TAB PO SCH (21:00)
[2020-09-12] MEDS ORDERED: Rosuvastatin 10 MG TAB PO SCH (21:00)
[2020-09-12] MEDS ORDERED: Non-Formulary Item 1 EACH (Oxybutynin Chloride [Oxybutynin Chloride Er] 10 MG Tab.Er.24) PO SCH (21:00)
== END 2020-09-12 16:58 | disposition home or self-care (01) ==
LOC: ERS 09:01 → ERHOLD 11:52 → INTOOBSV 11:52 → 2NO 18:41
PROVIDERS: ADMIT Student in an Organized Health Care Education/Training Program; ATTEND Student in an Organized Health Care Education/Training Program
DX: R07.2 Precordial pain (principal); I10 Essential (primary) hypertension; I44.7 Left bundle-branch block, unspecified; E11.9 Type 2 diabetes mellitus without complications; E78.5 Hyperlipidemia, unspecified; G47.33 Obstructive sleep apnea (adult) (pediatric); Z20.828 Contact with and (suspected) exposure to other viral communicable diseases; Z79.84 Long term (current) use of oral hypoglycemic drugs; Z79.899 Other long term (current) drug therapy; Z87.891 Personal history of nicotine dependence; Z88.8 Allergy status to other drugs, medicaments and biological substances
CPT/HCPCS: 36415; 36416; 71045; 80053; 83880; 84484; 85025; 87635; 93005; G0378; Q0162; U0003

== ENCOUNTER 2021-04-17 09:14 | Outpatient (CLI) | payer OTHER, MEDICARE ==
[2021-04-17 11:54] LABS: Hemoglobin 14.4 g/dL (13.5-17.5); Mean Corpuscular HGB CONC 35.2 g/dL (32.0-36.0); Mean Corpuscular Hemoglobin 30.1 pg (27.0-33.0); Mean Corpuscular Volume 85.4 fl (81.2-95.1); Mean Platelet Volume 9.9 fl (7.4-10.4); Platelet Count 278 10x3/uL (150-450); RBC Distribution Width 12.3 % (11.5-14.5); Red Blood Cell (RBC) Count 4.79 10x6/uL (4.32-5.72)
[2021-04-17 12:18] LABS: Prothrombin Time 11.1 sec (9.5-12.1)
[2021-04-17 12:27] LABS: Anion Gap 13 mmol/L (10-20); BUN (Urea Nitrogen) 10 mg/dL (8.4-25.7); Calc. Creatinine Clearance 0 mL/min (70-130); Calcium 9.7 mg/dL (7.8-10.44); Carbon Dioxide 26 mmol/L (23-31); Chloride 94 mmol/L (98-107); Glucose 146 mg/dL (80-115); Potassium 4.3 mmol/L (3.5-5.1); Sodium 129 mmol/L (136-145)
[2021-04-17 13:24] LABS: Bilirubin Neg (Negative); Blood, Urine 10 (Negative); Clarity Clear (Clear); Glucose, Urine (Dipstick) Normal (Negative); Ketone, Urine Negative (Negative); Leukocyte Negative (Negative); Nitrite Negative (Negative); Protein, Urine (Dipstick) Negative (Neg-Trace); Urobilinogen Normal mg/dL (Less than 2); pH, Urine 6.5 (5.0-9.0)
[2021-04-17 15:26] LABS: RBC/HPF 0-3 HPF (0-3)
[2021-04-17 15:28] LABS: Bacteria/HPF Rare-Few HPF (None Seen); Squamous Epithelial 0-3 HPF (0-3); WBC/HPF None Seen HPF (0-3)
== END 2021-04-17 09:15 | disposition home or self-care (01) ==
LOC: LABBT 09:14
PROVIDERS: ATTEND Urology
DX: Z01.818 Encounter for other preprocedural examination (principal); N40.1 Benign prostatic hyperplasia with lower urinary tract symptoms; R97.20 Elevated prostate specific antigen [PSA]; N32.81 Overactive bladder
CPT/HCPCS: 80048; 81001; 85027; 85610; 85730; 87086; 93005; 93010; 97802

== ENCOUNTER 2021-04-20 07:55 | Day surgery (SDC) | payer OTHER, MEDICARE ==
[2021-04-19 11:07] VITALS: BMI 39.1
[2021-04-20] MEDS ORDERED: Levofloxacin 500 mg/D5W 100 ml Premix Bag ONE (09:47)
[2021-04-20] MEDS ORDERED: Fentanyl 100 MCG/2 ML VIAL ONE (11:50)
[2021-04-20] MEDS ORDERED: Midazolam HCl 2 mg/2 ml Vial ONE (11:50)
[2021-04-20] MEDS ORDERED: B & O ONE (12:39)
[2021-04-20] MEDS ORDERED: HYDROcodone/Acetaminophen 5/325 mg Tablet ONE (14:08)
== END 2021-04-20 15:25 | disposition home or self-care (01) ==
LOC: SDC 07:55
PROVIDERS: ATTEND Urology
PROC: 0T7D8DZ Dilation of Urethra with Intraluminal Device, Via Natural or Artificial Opening Endoscopic (ICD-10-PCS; principal; 2021-04-20)
DX: N40.1 Benign prostatic hyperplasia with lower urinary tract symptoms (principal); N32.81 Overactive bladder; I10 Essential (primary) hypertension; E11.9 Type 2 diabetes mellitus without complications; G47.33 Obstructive sleep apnea (adult) (pediatric); Z79.84 Long term (current) use of oral hypoglycemic drugs; Z79.899 Other long term (current) drug therapy; Z88.8 Allergy status to other drugs, medicaments and biological substances
CPT/HCPCS: J1956; J2250; J3010; L8699

== ENCOUNTER 2022-12-22 08:48 | Inpatient (IN) | payer MEDICARE ==
[2022-12-22 10:10] LABS: #Basophils 0.1 thou/uL (0.0-0.2); #Eosinphils 0.2 thou/uL (0.0-0.7); #Lymphocytes 1.3 thou/uL (1.20-3.40); #Monocytes 1.4 thou/uL (0.11-0.59); #Neutrophils 15.2 thou/uL (1.40-6.50); %Basophils 0.4 % (0.0-1.0); %Eosinophils 1.1 % (0.0-10.0); %Lymphocytes 7.3 % (21.0-51.0); %Monocytes 7.5 % (0.0-10.0); %Neutrophils 83.8 % (42.0-75.0); Hemoglobin 13.7 g/dL (14.0-18.0); Mean Corpuscular HGB CONC 34.1 g/dL (32.0-36.0); Mean Corpuscular Hemoglobin 31.3 pg (27.0-31.0); Mean Corpuscular Volume 91.8 fl (78.0-98.0); Mean Platelet Volume 6.7 fL (7.4-10.4); Platelet Count 305 10x3/uL (130-400); RBC Distribution Width 11.5 % (11.5-14.5); Red Blood Cell (RBC) Count 4.38 mill/uL (4.70-6.10); White Blood Cell (WBC) Count 18.1 10x3/uL (4.8-10.8)
[2022-12-22 10:16] LABS: Bacteria/HPF 3+ HPF (None Seen); Bilirubin Negative (Negative); Blood, Urine Negative (Negative); Clarity Clear (Clear); Glucose, Urine (Dipstick) 300 mg/dL (Negative); Ketone, Urine Negative (Negative); Leukocyte 500 Leu/uL (Negative); Nitrite 2+ (Negative); Protein, Urine (Dipstick) Negative (Neg-Trace); RBC/HPF 0-3 HPF (0-3); Specific Gravity, Urine 1.013 (1.002-1.036); Squamous Epithelial None Seen HPF (0-3); Urobilinogen Normal mg/dL (Less than 2); WBC/HPF 21-50 HPF (0-3); pH, Urine 6.5 (5.0-9.0)
[2022-12-22 10:36] LABS: ALT (SGPT) 33 U/L (8-55); AST (SGOT) 11 U/L (5-34); Albumin 4.3 g/dL (3.4-4.8); Alkaline Phosphatase 68 U/L (40-110); Anion Gap 14 mmol/L (10-20); BUN (Urea Nitrogen) 8 mg/dL (8.4-25.7); Bilirubin, Total 0.5 mg/dL (0.2-1.2); Calc. Creatinine Clearance 0 mL/min (70-130); Calcium 9.5 mg/dL (7.8-10.44); Carbon Dioxide 24 mmol/L (23-31); Chloride 90 mmol/L (98-107); Estimated GFR 100; Globulin 3.2 g/dL (2.4-3.5); Glucose 189 mg/dL (80-115); Potassium 4.6 mmol/L (3.5-5.1); Protein, Total 7.5 g/dL (5.8-8.1); Sodium 123 mmol/L (136-145)
[2022-12-22] MEDS ORDERED: cefTRIAXone\\ROCEPHIN 1 GM VIAL ONE (10:52)
[2022-12-22 12:28] LABS: SARS-CoV-2 NAA Rapid Test Not Detected (NotDetected)
[2022-12-22] MEDS ORDERED: Ondansetron PF 4 MG/2 ML Vial IVP PRN (14:11)
[2022-12-22] MEDS ORDERED: Acetaminophen 325 MG TAB PO PRN (14:12)
[2022-12-22] MEDS ORDERED: Ondansetron ODT 4 MG TAB PO PRN (14:12)
[2022-12-22] MEDS: Sodium Chloride 0.9% 1,000 ML IV SCH (14:26)
[2022-12-22 14:38] VITALS: BMI 38.4
[2022-12-22] MEDS: Acetaminophen 325 MG TAB PO PRN (16:27)
[2022-12-22] MEDS: Oxybutynin ER 5 MG TAB PO SCH (21:03)
[2022-12-22] MEDS: Rosuvastatin 10 MG TAB PO SCH (21:04)
[2022-12-22] MEDS: Tamsulosin HCl 0.4 MG CAP PO SCH (21:04)
[2022-12-22] MEDS ORDERED: Senokot S 8.6-50 MG TAB PO PRN (21:28)
[2022-12-22] MEDS ORDERED: Bisacodyl 5 MG TAB PO PRN (21:28)
[2022-12-22] MEDS ORDERED: Polyethylene Glycol 3350 17 GM Packet PO SCH (21:30)
[2022-12-22] MEDS: Melatonin 3 MG TAB PO PRN (23:28)
[2022-12-23] MEDS: Sodium Chloride 0.9% 1,000 ML IV SCH ×4 (01:15→21:43)
[2022-12-23 05:32] LABS: #Eosinphils 0.2 thou/uL (0.0-0.7); #Monocytes 1.8 thou/uL (0.11-0.59); #Neutrophils 12.2 thou/uL (1.40-6.50); %Basophils 0.2 % (0.0-1.0); %Eosinophils 1.4 % (0.0-10.0); %Lymphocytes 12.2 % (21.0-51.0); %Monocytes 10.8 % (0.0-10.0); %Neutrophils 75.4 % (42.0-75.0); Hemoglobin 13.7 g/dL (14.0-18.0); Mean Corpuscular HGB CONC 34.9 g/dL (32.0-36.0); Mean Corpuscular Hemoglobin 31.7 pg (27.0-31.0); Mean Corpuscular Volume 90.7 fl (78.0-98.0); Mean Platelet Volume 6.5 fL (7.4-10.4); Platelet Count 322 10x3/uL (130-400); RBC Distribution Width 11.6 % (11.5-14.5); Red Blood Cell (RBC) Count 4.34 mill/uL (4.70-6.10); White Blood Cell (WBC) Count 16.2 10x3/uL (4.8-10.8)
[2022-12-23 05:57] LABS: Anion Gap 16 mmol/L (10-20); BUN (Urea Nitrogen) 7 mg/dL (8.4-25.7); Calc. Creatinine Clearance 173 mL/min (70-130); Calcium 9.6 mg/dL (7.8-10.44); Carbon Dioxide 21 mmol/L (23-31); Chloride 90 mmol/L (98-107); Estimated GFR 102; Glucose 170 mg/dL (80-115); Potassium 4.3 mmol/L (3.5-5.1); Sodium 123 mmol/L (136-145)
[2022-12-23] MEDS ORDERED: Dextrose 5% in Water 1,000 ML IV PRN (06:31)
[2022-12-23] MEDS ORDERED: Dextrose 50% Abboject 50 ML SYRINGE SLOW IVP PRN (06:31)
[2022-12-23] MEDS ORDERED: HumaLOG 300 UNITS/3 ML VIAL SC PRN (06:31)
[2022-12-23] MEDS: HumaLOG 300 UNITS/3 ML VIAL SC PRN (06:50)
[2022-12-23] MEDS: Polyethylene Glycol 3350 17 GM Packet PO SCH (08:56)
[2022-12-23] MEDS ORDERED: Magnesium Citrate 300 ML BOT PO SCH (10:00)
[2022-12-23] MEDS ORDERED: Piperacillin/Tazobactam 3.375 GM in Sodium Chloride 0.9% 100 ML IVPB SCH ×2 (10:15→14:00)
[2022-12-23] MEDS ORDERED: cefTRIAXone\\ROCEPHIN 1 GM in Sodium Chloride 0.9% 100 ML IVPB SCH (12:00)
[2022-12-23] MEDS: Acetaminophen 325 MG TAB PO PRN (14:09)
[2022-12-23] MEDS: metFORMIN 500 MG TAB PO SCH (16:30)
[2022-12-23] MEDS: Piperacillin/Tazobactam 3.375 GM in Sodium Chloride 0.9% 100 ML IVPB SCH (21:36)
[2022-12-23] MEDS: Tamsulosin HCl 0.4 MG CAP PO SCH (21:36)
[2022-12-23] MEDS: Melatonin 3 MG TAB PO PRN (21:36)
[2022-12-23] MEDS: Rosuvastatin 10 MG TAB PO SCH (21:37)
[2022-12-23] MEDS: Oxybutynin ER 5 MG TAB PO SCH (22:15)
[2022-12-24 04:51] LABS: #Eosinphils 0.3 thou/uL (0.0-0.7); #Lymphocytes 1.5 thou/uL (1.20-3.40); #Monocytes 1.4 thou/uL (0.11-0.59); #Neutrophils 8.7 thou/uL (1.40-6.50); %Basophils 0.3 % (0.0-1.0); %Eosinophils 2.7 % (0.0-10.0); %Lymphocytes 12.5 % (21.0-51.0); %Monocytes 11.5 % (0.0-10.0); Hemoglobin 13.4 g/dL (14.0-18.0); Mean Corpuscular HGB CONC 35.2 g/dL (32.0-36.0); Mean Corpuscular Hemoglobin 31.8 pg (27.0-31.0); Mean Corpuscular Volume 90.4 fl (78.0-98.0); Mean Platelet Volume 6.5 fL (7.4-10.4); Platelet Count 315 10x3/uL (130-400); RBC Distribution Width 11.5 % (11.5-14.5); White Blood Cell (WBC) Count 11.9 10x3/uL (4.8-10.8)
[2022-12-24 05:15] LABS: Anion Gap 10 mmol/L (10-20); BUN (Urea Nitrogen) 6 mg/dL (8.4-25.7); Calc. Creatinine Clearance 183 mL/min (70-130); Calcium 9.4 mg/dL (7.8-10.44); Carbon Dioxide 20 mmol/L (23-31); Chloride 96 mmol/L (98-107); Estimated GFR 104; Glucose 162 mg/dL (80-115); Sodium 122 mmol/L (136-145)
[2022-12-24] MEDS: Piperacillin/Tazobactam 3.375 GM in Sodium Chloride 0.9% 100 ML IVPB SCH ×3 (05:19→21:14)
[2022-12-24] MEDS: Sodium Chloride 0.9% 1,000 ML IV SCH (05:19)
[2022-12-24] MEDS ORDERED: VITAMIN E 1000 UNIT PO SCH (09:00)
[2022-12-24] MEDS ORDERED: Non-Formulary Item 1 EACH (Valsartan/Hydrochlorothiazide [Valsartan-Hctz 320-25 Mg Tab] 1 PO SCH (09:00)
[2022-12-24] MEDS ORDERED: [UNRECOGNIZED DRUG - OTHER] PO SCH (09:00)
[2022-12-24] MEDS ORDERED: Cholecalciferol 1,000 UNITS (25 MCG) TAB PO SCH (09:00)
[2022-12-24] MEDS: Valsartan 80 MG TAB PO SCH (09:21)
[2022-12-24] MEDS: Pioglitazone HCl 15 MG TAB PO SCH (09:22)
[2022-12-24] MEDS: Hydrochlorothiazide 25 MG TAB PO SCH (09:22)
[2022-12-24] MEDS: metFORMIN 500 MG TAB PO SCH ×2 (09:23→17:27)
[2022-12-24] MEDS: Cholecalciferol 1,000 UNITS (25 MCG) TAB PO SCH (09:23)
[2022-12-24] MEDS: Aspirin Chewable 81 MG TAB PO SCH (09:23)
[2022-12-24] MEDS: Spironolactone 25 MG TAB PO SCH (09:23)
[2022-12-24] MEDS: Amlodipine 10 MG TAB PO SCH (09:23)
[2022-12-24] MEDS: Ascorbic Acid 500 mg Chewable Tablet PO SCH (09:23)
[2022-12-24] MEDS: Polyethylene Glycol 3350 17 GM Packet PO SCH (09:24)
[2022-12-24] MEDS: HumaLOG 300 UNITS/3 ML VIAL SC PRN (12:00)
[2022-12-24] MEDS: Oxybutynin ER 5 MG TAB PO SCH (21:13)
[2022-12-24] MEDS: Rosuvastatin 10 MG TAB PO SCH (21:14)
[2022-12-24] MEDS: Tamsulosin HCl 0.4 MG CAP PO SCH (21:14)
[2022-12-24] MEDS: Acetaminophen 325 MG TAB PO PRN (21:32)
[2022-12-24] MEDS: Melatonin 3 MG TAB PO PRN (21:32)
[2022-12-25] MEDS: Piperacillin/Tazobactam 3.375 GM in Sodium Chloride 0.9% 100 ML IVPB SCH (05:59)
[2022-12-25 07:39] LABS: #Eosinphils 0.3 thou/uL (0.0-0.7); #Lymphocytes 1.5 thou/uL (1.20-3.40); #Monocytes 1.3 thou/uL (0.11-0.59); #Neutrophils 5.8 thou/uL (1.40-6.50); %Basophils 0.2 % (0.0-1.0); %Eosinophils 3.9 % (0.0-10.0); %Lymphocytes 16.6 % (21.0-51.0); %Monocytes 14.1 % (0.0-10.0); %Neutrophils 65.2 % (42.0-75.0); Hemoglobin 13.2 g/dL (14.0-18.0); Mean Corpuscular HGB CONC 33.9 g/dL (32.0-36.0); Mean Corpuscular Hemoglobin 30.9 pg (27.0-31.0); Mean Corpuscular Volume 91.2 fl (78.0-98.0); Mean Platelet Volume 6.2 fL (7.4-10.4); Platelet Count 370 10x3/uL (130-400); RBC Distribution Width 11.6 % (11.5-14.5); Red Blood Cell (RBC) Count 4.26 mill/uL (4.70-6.10)
[2022-12-25 07:48] VITALS: TEMP 98.2
[2022-12-25 07:58] LABS: Anion Gap 13 mmol/L (10-20); BUN (Urea Nitrogen) 6 mg/dL (8.4-25.7); Calc. Creatinine Clearance 169 mL/min (70-130); Calcium 9.3 mg/dL (7.8-10.44); Carbon Dioxide 23 mmol/L (23-31); Chloride 92 mmol/L (98-107); Estimated GFR 101; Glucose 164 mg/dL (80-115); Potassium 4.2 mmol/L (3.5-5.1); Sodium 124 mmol/L (136-145)
[2022-12-25] MEDS: Pioglitazone HCl 15 MG TAB PO SCH (08:28)
[2022-12-25] MEDS: Aspirin Chewable 81 MG TAB PO SCH (08:28)
[2022-12-25] MEDS: Cholecalciferol 1,000 UNITS (25 MCG) TAB PO SCH (08:28)
[2022-12-25] MEDS: Valsartan 80 MG TAB PO SCH (08:28)
[2022-12-25] MEDS: Hydrochlorothiazide 25 MG TAB PO SCH (08:29)
[2022-12-25] MEDS: Polyethylene Glycol 3350 17 GM Packet PO SCH (08:29)
[2022-12-25] MEDS: metFORMIN 500 MG TAB PO SCH (08:29)
[2022-12-25] MEDS: Amlodipine 10 MG TAB PO SCH (08:29)
[2022-12-25] MEDS: Spironolactone 25 MG TAB PO SCH (08:29)
[2022-12-25] MEDS: Ascorbic Acid 500 mg Chewable Tablet PO SCH (08:29)
[2022-12-25 12:30] VITALS: BP 157/88
== END 2022-12-25 12:33 | disposition home or self-care (01) | DRG 872 ==
LOC: ERS 08:48 → 2NO 14:23 → T4-A 12-24 18:15
PROVIDERS: ADMIT Internal Medicine; ATTEND Hospitalist
PROC: 3E03329 Introduction of Other Anti-infective into Peripheral Vein, Percutaneous Approach (ICD-10-PCS; 2022-12-22)
PROC: 5A09357 Assistance with Respiratory Ventilation, Less than 24 Consecutive Hours, Continuous Positive Airway Pressure (ICD-10-PCS; principal; 2022-12-23)
DX: A41.59 Other Gram-negative sepsis (principal); E87.1 Hypo-osmolality and hyponatremia; N10 Acute pyelonephritis; E11.9 Type 2 diabetes mellitus without complications; E78.5 Hyperlipidemia, unspecified; I10 Essential (primary) hypertension; I25.10 Atherosclerotic heart disease of native coronary artery without angina pectoris; Z20.822 Contact with and (suspected) exposure to COVID-19; N40.0 Benign prostatic hyperplasia without lower urinary tract symptoms; I25.2 Old myocardial infarction; Z88.8 Allergy status to other drugs, medicaments and biological substances; Z79.84 Long term (current) use of oral hypoglycemic drugs; Z79.899 Other long term (current) drug therapy; Z87.891 Personal history of nicotine dependence; Z98.890 Other specified postprocedural states
CPT/HCPCS: 36415; 36416; 71045; 74176; 80048; 80053; 81001; 81003; 81015; 83605; 83880; 84484; 85025; 87040; 87077; 87086; 87186; 93005; 96361; 96365; J0696; J1815; J2543; J3490; J7050; U0002

== ENCOUNTER 2023-05-29 07:34 | Outpatient (CLI) | payer MEDICARE | END 2023-05-29 07:35 | disposition home or self-care (01) | LOC: BICULT 07:34 | PROVIDERS: ATTEND Physician Assistant Medical | DX: R93.3 Abnormal findings on diagnostic imaging of other parts of digestive tract (principal); K76.0 Fatty (change of) liver, not elsewhere classified; R16.0 Hepatomegaly, not elsewhere classified; I81 Portal vein thrombosis | CPT/HCPCS: 76705 ==

== ENCOUNTER 2024-05-06 07:46 | Emergency (ER) | payer MEDICARE ==
[2024-05-06] MEDS ORDERED: Ketorolac Tromethamine 30 MG (1 mL) VIAL ONE (08:25)
[2024-05-06] MEDS ORDERED: predniSONE 20 MG TAB ONE (08:26)
== END 2024-05-06 11:35 | disposition home or self-care (01) ==
LOC: ERS 07:46
DX: S29.012A Strain of muscle and tendon of back wall of thorax, initial encounter (principal); X58.XXXA Exposure to other specified factors, initial encounter
CPT/HCPCS: 71045; 71046; 93005; J1885; 96372; J7512

== ENCOUNTER 2024-05-25 14:34 | Outpatient (CLI) | payer MEDICARE | END 2024-05-25 14:35 | disposition home or self-care (01) | LOC: ULT 14:34 | PROVIDERS: ATTEND Internal Medicine | DX: G47.33 Obstructive sleep apnea (adult) (pediatric) (principal); I27.20 Pulmonary hypertension, unspecified | CPT/HCPCS: 93306 ==

== ENCOUNTER 2024-10-26 14:21 | Outpatient (CLI) | payer MEDICARE, OTHER | END 2024-10-26 14:22 | disposition home or self-care (01) | LOC: BICMRI 14:21 | PROVIDERS: ATTEND Physician Assistant | DX: H90.A21 Sensorineural hearing loss, unilateral, right ear, with restricted hearing on the contralateral side (principal); R90.82 White matter disease, unspecified; J32.2 Chronic ethmoidal sinusitis | CPT/HCPCS: 36415; 70553; 82565 ==

== ENCOUNTER 2025-06-17 12:32 | Outpatient (CLI) | payer MEDICARE ==
[2025-06-17 13:43] LABS: #Basophils 0.05 10x3/uL (0.0-0.2); #Eosinophils 0.47 10x3/uL (0.0-0.7); #Monocytes 0.96 10x3/uL (0.11-0.59); #Neutrophils 5.35 10x3/uL (1.40-6.50); %Basophils 0.5 % (0.0-1.0); %Eosinophils 5.1 % (0.0-10.0); %Lymphocytes 24.8 % (21.0-51.0); %Monocytes 10.5 % (0.0-10.0); %Neutrophils 58.7 % (42.0-75.0); Hematocrit 43.2 % (42.0-52.0); Hemoglobin 14.6 g/dL (14.0-18.0); Mean Corpuscular Hemoglobin 29.5 pg (27.0-31.0); Mean Corpuscular Volume 87.3 fL (78.0-98.0); Platelet Count 289 10x3/uL (130-400); Red Blood Cell (RBC) Count 4.95 mill/uL (4.70-6.10); White Blood Cell (WBC) Count 9.14 10x3/uL (4.8-10.8)
[2025-06-17 13:49] LABS: Bacteria/HPF None Seen HPF (None Seen); Glucose, Urine (Dipstick) Normal (Negative); Leukocyte Negative Leu/uL (Negative); Protein, Urine (Dipstick) Negative (Neg-Trace); RBC/HPF 0-3 HPF (0-3); Specific Gravity, Urine 1.015 (1.002-1.036); WBC/HPF 0-3 HPF (0-3)
[2025-06-17 13:59] LABS: Anion Gap 15 mmol/L (10-20); BUN (Urea Nitrogen) 12 mg/dL (8.4-25.7); Calc. Creatinine Clearance 0 mL/min (70-130); Calcium 9.7 mg/dL (7.8-10.44); Carbon Dioxide 23 mmol/L (23-31); Chloride 96 mmol/L (98-107); Glucose 118 mg/dL (80-115); Potassium 4.2 mmol/L (3.5-5.1); Sodium 130 mmol/L (136-145)
== END 2025-06-17 12:33 | disposition home or self-care (01) ==
LOC: LABBT 12:32
PROVIDERS: ATTEND Urology
DX: Z01.818 Encounter for other preprocedural examination (principal); N40.1 Benign prostatic hyperplasia with lower urinary tract symptoms
CPT/HCPCS: 71046; 80048; 81001; 85025; 87086; 93005; 93010

== ENCOUNTER 2025-07-01 05:48 | Day surgery (SDC) | payer MEDICARE, OTHER ==
[2025-06-17 12:58] VITALS: BMI 40.6
[2025-07-01] MEDS ORDERED: cefTRIAXone (ROCEPHIN) 2 GM VIAL ONE (06:45)
[2025-07-01] MEDS ORDERED: fentaNYL PF 100 MCG/2 ML SYRINGE ONE (06:46)
[2025-07-01] MEDS ORDERED: PROPOFOL 20 ML ONE (06:47)
[2025-07-01] MEDS ORDERED: Lidocaine 1% PF 5 ML VIAL ONE (06:47)
[2025-07-01] MEDS ORDERED: Rocuronium Bromide 10 MG/ML (10ML VIAL) ONE (06:47)
[2025-07-01] MEDS ORDERED: Ondansetron PF 4 MG/2 ML Vial ONE (07:56)
[2025-07-01] MEDS ORDERED: SUGAMMADEX SODIUM 200 MG/2 ML VIAL ONE (07:57)
[2025-07-01] MEDS ORDERED: Oxybutynin 5 MG TAB ONE (10:17)
== END 2025-07-01 11:33 | disposition home or self-care (01) ==
LOC: SDC 05:48
PROVIDERS: ATTEND Urology
PROC: 0VT08ZZ Resection of Prostate, Via Natural or Artificial Opening Endoscopic (ICD-10-PCS; principal; 2025-07-01)
DX: N40.1 Benign prostatic hyperplasia with lower urinary tract symptoms (principal); N13.8 Other obstructive and reflux uropathy; I10 Essential (primary) hypertension; E11.9 Type 2 diabetes mellitus without complications; G47.33 Obstructive sleep apnea (adult) (pediatric); Z88.8 Allergy status to other drugs, medicaments and biological substances
CPT/HCPCS: 52601; 82962; A4333; J0696; J1100; J2405; J2704; 36416; 88305

== ENCOUNTER 2025-07-30 19:59 | Emergency (ER) | payer MEDICARE ==
[2025-07-30] MEDS ORDERED: HYDROmorphone 0.5 MG/0.5 ML SYRINGE ONE (20:29)
[2025-07-30 20:49] LABS: #Basophils 0.05 10x3/uL (0.0-0.2); #Eosinophils 0.44 10x3/uL (0.0-0.7); #Monocytes 1.49 10x3/uL (0.11-0.59); #Neutrophils 9.50 10x3/uL (1.40-6.50); %Basophils 0.4 % (0.0-1.0); %Eosinophils 3.3 % (0.0-10.0); %Lymphocytes 13.5 % (21.0-51.0); %Monocytes 11.2 % (0.0-10.0); %Neutrophils 71.4 % (42.0-75.0); Hematocrit 41.0 % (42.0-52.0); Hemoglobin 13.7 g/dL (14.0-18.0); Mean Corpuscular Hemoglobin 29.3 pg (27.0-31.0); Mean Corpuscular Volume 87.6 fL (78.0-98.0); Platelet Count 296 10x3/uL (130-400); Red Blood Cell (RBC) Count 4.68 mill/uL (4.70-6.10); White Blood Cell (WBC) Count 13.31 10x3/uL (4.8-10.8)
[2025-07-30 21:01] LABS: Bacteria/HPF None Seen HPF (None Seen); CAUTI Indications for Culture Acute Hematuria; Glucose, Urine (Dipstick) Normal (Negative); Leukocyte 250 Leu/uL (Negative); Protein, Urine (Dipstick) Negative (Neg-Trace); RBC/HPF Greater than 50 HPF (0-3); Specific Gravity, Urine 1.009 (1.002-1.036)
[2025-07-30 21:02] LABS: Sperm/HPF Rare HPF (None Seen)
[2025-07-30 21:05] LABS: ALT (SGPT) 55 U/L (Less than 45); AST (SGOT) 28 U/L (11-34); Albumin 4.3 g/dL (3.1-4.5); Alkaline Phosphatase 75 U/L (40-110); Anion Gap 14 mmol/L (10-20); BUN (Urea Nitrogen) 11 mg/dL (8.4-25.7); Bilirubin, Total 0.3 mg/dL (0.3-1.2); Calc. Creatinine Clearance 0 mL/min (70-130); Calcium 9.1 mg/dL (7.8-10.44); Carbon Dioxide 25 mmol/L (23-31); Chloride 98 mmol/L (98-107); Globulin 3.6 g/dL (2.4-3.5); Glucose 189 mg/dL (80-115); Lipase 29 U/L (8-78); Potassium 4.0 mmol/L (3.5-5.1); Sodium 133 mmol/L (136-145)
[2025-07-30 21:05] LABS: Urine Culture Reflex Yes Yes
[2025-07-30] MEDS ORDERED: Ondansetron PF 4 MG/2 ML Vial ONE (21:48)
== END 2025-07-30 22:30 | disposition home or self-care (01) ==
LOC: ERS 19:59
DX: K57.32 Diverticulitis of large intestine without perforation or abscess without bleeding (principal); E11.9 Type 2 diabetes mellitus without complications; E78.00 Pure hypercholesterolemia, unspecified; I10 Essential (primary) hypertension; I25.2 Old myocardial infarction; Z87.891 Personal history of nicotine dependence
CPT/HCPCS: 74177; 80053; 81001; 83690; 85025; 87086; J1171; J2543; 96365; 96366; 96375

== ENCOUNTER 2025-08-19 10:49 | Emergency (ER) | payer MEDICARE ==
[2025-08-19 11:22] LABS: CAUTI Indications for Culture Dysuria,urgency,freq; Glucose, Urine (Dipstick) Normal (Negative); Leukocyte 250 Leu/uL (Negative); Protein, Urine (Dipstick) Negative (Neg-Trace); Specific Gravity, Urine 1.014 (1.002-1.036); WBC/HPF 21-50 HPF (0-3)
[2025-08-19 11:26] LABS: Bacteria/HPF 1+ HPF (None Seen); Urine Culture Reflex Yes Yes
[2025-08-19 12:27] LABS: #Basophils 0.03 10x3/uL (0.0-0.2); #Eosinophils 0.24 10x3/uL (0.0-0.7); #Monocytes 1.19 10x3/uL (0.11-0.59); #Neutrophils 8.30 10x3/uL (1.40-6.50); %Basophils 0.3 % (0.0-1.0); %Eosinophils 2.1 % (0.0-10.0); %Lymphocytes 14.4 % (21.0-51.0); %Monocytes 10.4 % (0.0-10.0); %Neutrophils 72.3 % (42.0-75.0); Hematocrit 37.5 % (42.0-52.0); Hemoglobin 12.6 g/dL (14.0-18.0); Mean Corpuscular Hemoglobin 29.3 pg (27.0-31.0); Mean Corpuscular Volume 87.2 fL (78.0-98.0); Platelet Count 286 10x3/uL (130-400); Red Blood Cell (RBC) Count 4.30 mill/uL (4.70-6.10); White Blood Cell (WBC) Count 11.47 10x3/uL (4.8-10.8)
[2025-08-19 12:40] LABS: ALT (SGPT) 32 U/L (Less than 45); AST (SGOT) 18 U/L (11-34); Albumin 3.7 g/dL (3.1-4.5); Alkaline Phosphatase 73 U/L (40-110); Anion Gap 11 mmol/L (10-20); BUN (Urea Nitrogen) 8 mg/dL (8.4-25.7); Bilirubin, Total 0.4 mg/dL (0.3-1.2); Calc. Creatinine Clearance 0 mL/min (70-130); Calcium 9.1 mg/dL (7.8-10.44); Carbon Dioxide 25 mmol/L (23-31); Chloride 98 mmol/L (98-107); Globulin 3.6 g/dL (2.4-3.5); Glucose 193 mg/dL (80-115); Lipase 15 U/L (8-78); Potassium 4.2 mmol/L (3.5-5.1); Sodium 130 mmol/L (136-145)
[2025-08-19] MEDS ORDERED: cefTRIAXone (ROCEPHIN) 1 GM VIAL ONE (15:10)
[2025-08-19] MEDS ORDERED: metroNIDAZOLE 500 MG (100 mL) BAG ONE (16:30)
[2025-08-19] MEDS ORDERED: Ketorolac Tromethamine 30 MG (1 mL) VIAL ONE (17:25)
== END 2025-08-19 17:39 | disposition home or self-care (01) ==
LOC: ERS 10:49
DX: N39.0 Urinary tract infection, site not specified (principal); K57.92 Diverticulitis of intestine, part unspecified, without perforation or abscess without bleeding; E11.9 Type 2 diabetes mellitus without complications; I10 Essential (primary) hypertension; I25.2 Old myocardial infarction; Z87.891 Personal history of nicotine dependence
CPT/HCPCS: 74177; 80053; 81001; 83605; 83690; 85025; 87086; J0696; J1885; J3010; 96365; 96366; 96368; 96375

== ENCOUNTER 2025-09-23 09:24 | Emergency (ER) | payer MEDICARE, OTHER ==
[2025-09-23 10:16] LABS: #Basophils 0.05 10x3/uL (0.0-0.2); #Eosinophils 0.26 10x3/uL (0.0-0.7); #Monocytes 0.81 10x3/uL (0.11-0.59); #Neutrophils 7.28 10x3/uL (1.40-6.50); %Basophils 0.5 % (0.0-1.0); %Eosinophils 2.6 % (0.0-10.0); %Lymphocytes 14.8 % (21.0-51.0); %Monocytes 8.2 % (0.0-10.0); %Neutrophils 73.6 % (42.0-75.0); Hematocrit 39.8 % (42.0-52.0); Hemoglobin 13.7 g/dL (14.0-18.0); Mean Corpuscular Hemoglobin 29.0 pg (27.0-31.0); Mean Corpuscular Volume 84.3 fL (78.0-98.0); Platelet Count 279 10x3/uL (130-400); Red Blood Cell (RBC) Count 4.72 mill/uL (4.70-6.10); White Blood Cell (WBC) Count 9.89 10x3/uL (4.8-10.8)
[2025-09-23 10:27] LABS: Bacteria/HPF None Seen HPF (None Seen); CAUTI Indications for Culture Pelvic or flank pain; Glucose, Urine (Dipstick) Normal (Negative); Leukocyte Negative Leu/uL (Negative); Protein, Urine (Dipstick) Negative (Neg-Trace); RBC/HPF 0-3 HPF (0-3); Specific Gravity, Urine 1.007 (1.002-1.036); WBC/HPF 0-3 HPF (0-3)
[2025-09-23 10:29] LABS: Urine Culture Reflex No No
[2025-09-23 10:32] LABS: ALT (SGPT) 43 U/L (Less than 45); AST (SGOT) 26 U/L (11-34); Albumin 4.3 g/dL (3.1-4.5); Alkaline Phosphatase 72 U/L (40-110); Anion Gap 14 mmol/L (10-20); BUN (Urea Nitrogen) 7 mg/dL (8.4-25.7); Bilirubin, Total 0.4 mg/dL (0.3-1.2); Calc. Creatinine Clearance 0 mL/min (70-130); Calcium 9.2 mg/dL (7.8-10.44); Carbon Dioxide 24 mmol/L (23-31); Chloride 98 mmol/L (98-107); Globulin 3.5 g/dL (2.4-3.5); Glucose 170 mg/dL (80-115); Lipase 21 U/L (8-78); Potassium 3.8 mmol/L (3.5-5.1); Sodium 132 mmol/L (136-145)
[2025-09-23 10:35] LABS: Estimated GFR - POC 98.0
[2025-09-23] MEDS ORDERED: Ondansetron PF 4 MG/2 ML Vial ONE (11:08)
[2025-09-23] MEDS ORDERED: Iopamidol 370 76% 100 ML VIAL ONE (14:08)
== END 2025-09-23 12:13 | disposition home or self-care (01) ==
LOC: ERS 09:24
DX: K57.32 Diverticulitis of large intestine without perforation or abscess without bleeding (principal); E11.9 Type 2 diabetes mellitus without complications; E78.00 Pure hypercholesterolemia, unspecified; I10 Essential (primary) hypertension; I25.2 Old myocardial infarction; Z87.891 Personal history of nicotine dependence; Z79.84 Long term (current) use of oral hypoglycemic drugs; Z79.899 Other long term (current) drug therapy
CPT/HCPCS: 74177; 81001; 83690; 85025; 96374; 96375; J2405; Q9967

== ENCOUNTER 2025-10-23 14:09 | Emergency (ER) | payer MEDICARE, OTHER ==
[2025-10-23] MEDS ORDERED: Iopamidol-370 76% 500 ML MDV (1 ML CHARGE) ONE (14:11)
[2025-10-23 17:29] LABS: #Basophils 0.05 10x3/uL (0.0-0.2); #Eosinophils 0.35 10x3/uL (0.0-0.7); #Monocytes 1.41 10x3/uL (0.11-0.59); #Neutrophils 9.47 10x3/uL (1.40-6.50); %Basophils 0.4 % (0.0-1.0); %Eosinophils 2.7 % (0.0-10.0); %Lymphocytes 13.5 % (21.0-51.0); %Monocytes 10.8 % (0.0-10.0); %Neutrophils 72.1 % (42.0-75.0); Hematocrit 40.5 % (42.0-52.0); Hemoglobin 13.8 g/dL (14.0-18.0); Mean Corpuscular Hemoglobin 28.6 pg (27.0-31.0); Mean Corpuscular Volume 84.0 fL (78.0-98.0); Platelet Count 288 10x3/uL (130-400); Red Blood Cell (RBC) Count 4.82 mill/uL (4.70-6.10); White Blood Cell (WBC) Count 13.11 10x3/uL (4.8-10.8)
[2025-10-23 17:43] LABS: Albumin 3.9 g/dL (3.1-4.5); Chloride 97 mmol/L (98-107); Potassium 4.2 mmol/L (3.5-5.1); Sodium 132 mmol/L (136-145)
[2025-10-23 17:44] LABS: Calcium 9.4 mg/dL (7.8-10.44); Glucose 145 mg/dL (80-115)
[2025-10-23 17:45] LABS: Globulin 3.7 g/dL (2.4-3.5)
[2025-10-23 17:46] LABS: Anion Gap 18 mmol/L (10-20); Carbon Dioxide 21 mmol/L (23-31)
[2025-10-23 17:47] LABS: Alkaline Phosphatase 76 U/L (40-110); Bilirubin, Total 0.2 mg/dL (0.3-1.2)
[2025-10-23 17:48] LABS: BUN (Urea Nitrogen) 7 mg/dL (8.4-25.7); Calc. Creatinine Clearance 0 mL/min (70-130); Lipase 20 U/L (8-78)
[2025-10-23 17:50] LABS: ALT (SGPT) 44 U/L (Less than 45); AST (SGOT) 19 U/L (11-34)
[2025-10-23 18:07] LABS: Bacteria/HPF None Seen HPF (None Seen); CAUTI Indications for Culture Pelvic or flank pain; Glucose, Urine (Dipstick) Normal (Negative); Leukocyte Negative Leu/uL (Negative); Protein, Urine (Dipstick) Negative (Neg-Trace); RBC/HPF None Seen HPF (0-3); Specific Gravity, Urine 1.005 (1.002-1.036); WBC/HPF None Seen HPF (0-3)
[2025-10-23 18:10] LABS: Urine Culture Reflex No No
[2025-10-23] MEDS ORDERED: Ketorolac Tromethamine 30 MG (1 mL) VIAL ONE (19:45)
== END 2025-10-23 21:26 | disposition home or self-care (01) ==
LOC: ERS 14:09
DX: K57.32 Diverticulitis of large intestine without perforation or abscess without bleeding (principal); E11.9 Type 2 diabetes mellitus without complications; I10 Essential (primary) hypertension; I25.2 Old myocardial infarction; F17.210 Nicotine dependence, cigarettes, uncomplicated; Z79.899 Other long term (current) drug therapy; Z79.84 Long term (current) use of oral hypoglycemic drugs
CPT/HCPCS: 74177; 80053; 81001; 83690; 85025; J1885; J2543; 96365; 96375; Q9967